=== PATIENT | male | born 1935 | race Caucasian/White ===

== ENCOUNTER 2017-07-29 07:42 | Day surgery (SDC) | payer OTHER, SELFPAY ==
[~2017-07-29 07:42] MED LIST: ALBU3IS INH; ALBU90OI INH; ALBU90OI6 INH; ALLO100 PO; AMLO5 PO; ASPI325EC; ATEN50; ATEN50 PO; AZIT250 PO; Altoprev20 MG PO; Amaryl1 MG; Anusol-HC 2.5%30 GM EXT; BUDE10.22 INH; CEFU500 PO; COLC.6 PO; CPAP AT NIGHT; DILT180; DILT180 PO; ELIQUIS2.5 MG PO; ELIQUIS5 MG PO; FISH1000 PO; FLAX; Ferrous Sulfat325 M2 PO; Fluocinonide60 ML TOP; GABA300; GABA300 PO; GLIM2 PO; HYDACE5 PO; HYDR10 PO; HYDROCHLOROTHIAZIDE; Hydrocodone-Ap1 EA23 PO; INDO50 PO; KETO15TC TOP; LOSARTAN-HCTZ1 EAC2 PO; LOSHYD PO; LOVA20; METPRE4DP PO; OXYACE5T PO; PANT20 PO; RANI150; TAMS.4ER; TAMS.4ER PO; TRAM50 PO; TRIA15CR3 TOP; VICODIN 5-3001 EACH PO; [UNRECOGNIZED DRUG - REMARK]; [UNRECOGNIZED DRUG - REMARK]; [UNRECOGNIZED DRUG - REMARK]; [UNRECOGNIZED DRUG - REMARK]
== END 2017-07-29 18:17 | disposition home or self-care (01) ==
LOC: ATC 07:42
DX: E11.22 Type 2 diabetes mellitus with diabetic chronic kidney disease (principal); N18.9 Chronic kidney disease, unspecified; D63.1 Anemia in chronic kidney disease; D63.8 Anemia in other chronic diseases classified elsewhere; K92.1 Melena; E11.40 Type 2 diabetes mellitus with diabetic neuropathy, unspecified; J44.9 Chronic obstructive pulmonary disease, unspecified; I12.9 Hypertensive chronic kidney disease with stage 1 through stage 4 chronic kidney disease, or unspecified chronic kidney disease; E78.5 Hyperlipidemia, unspecified; Z87.891 Personal history of nicotine dependence
CPT/HCPCS: 36430; 86850; 86900; 86901; 86923; J7050; P9016

== ENCOUNTER 2017-08-31 10:09 | Inpatient (IN) | payer OTHER, SELFPAY ==
[~2017-08-31] VITALS: Ht 175.3 cm; Wt 88.7 kg
[2017-08-31 11:18] LABS: BASOPHILS ABSOLUTE AUTO 0.05 K/mm3 (0.00-0.23); BASOPHILS PERCENT AUTO 0 % (0-2); EOSINOPHILS PERCENT AUTO 0 % (0-6); Hematocrit 31.1 % (37.0-53.0); Hemoglobin 8.8 g/dL (13.5-17.5); IMMATURE GRAN ABSOLUTE AUTO 0.18 K/mm3 (0.00-0.10); IMMATURE GRAN PERCENT AUTO 1 % (0-1); LYMPHOCYTES ABSOLUTE AUTO 0.34 K/mm3 (0.84-5.20); LYMPHOCYTES PERCENT AUTO 1 % (21-46); MONOCYTES ABSOLUTE AUTO 2.13 K/mm3 (0.16-1.47); MONOCYTES PERCENT AUTO 9 % (4-13); Mean Corpuscular HGB 22.4 pg (26.0-34.0); Mean Corpuscular HGB Conc 28.3 g/dL (31.5-36.5); Mean Corpuscular Volume 79 fL (80-100); Mean Platelet Volume 11.8 fL (9.1-12.4); NEUTROPHILS ABSOLUTE AUTO 21.26 K/mm3 (1.96-9.15); NEUTROPHILS PERCENT AUTO 89 % (41-73); Platelet Count 271 K/mm3 (150-400); RDW Coefficient Variation 20.9 % (11.7-14.2); RDW Standard Deviation 58.9 fL (35.1-46.3); Red Blood Cell Count 3.92 M/mm3 (4.30-5.90); White Blood Cell Count 23.96 K/mm3 (4.00-11.30)
[2017-08-31 11:34] LABS: Albumin, Blood 3.5 g/dL (3.4-5.0); Albumin/Globulin Ratio 1.1 (0.8-1.8); Bilirubin, Total 1.4 mg/dL (0.1-1.0); Bun/Creatinine Ratio 11.3 (12.0-20.0); Calcium, Blood 9.3 mg/dL (8.5-10.1); Creatinine, Blood 1.51 mg/dL (0.60-1.20); Globulin, Blood 3.3 g/dL (2.2-4.0); Potassium, Blood 4.6 mmol/L (3.5-5.5); Total Protein, Blood 6.8 g/dL (6.4-8.2)
[2017-08-31 22:25] LABS: Influenza A Negative (NEGATIVE); Influenza B Negative (NEGATIVE)
[2017-09-01 05:26] LABS: Hematocrit 30.2 % (37.0-53.0); Hemoglobin 8.4 g/dL (13.5-17.5); Mean Corpuscular HGB 22.4 pg (26.0-34.0); Mean Corpuscular HGB Conc 27.8 g/dL (31.5-36.5); Mean Corpuscular Volume 81 fL (80-100); Mean Platelet Volume 11.3 fL (9.1-12.4); Platelet Count 264 K/mm3 (150-400); RDW Coefficient Variation 20.9 % (11.7-14.2); RDW Standard Deviation 59.6 fL (35.1-46.3); Red Blood Cell Count 3.75 M/mm3 (4.30-5.90)
[2017-09-01 05:48] LABS: Bun/Creatinine Ratio 15.1 (12.0-20.0); Calcium, Blood 8.5 mg/dL (8.5-10.1); Creatinine, Blood 1.66 mg/dL (0.60-1.20); Potassium, Blood 3.9 mmol/L (3.5-5.5)
[2017-09-01 06:20] LABS: BAND PERCENT MAN 11 % (0-8); BASOPHILS PERCENT MAN 0 % (0-2); EOSINOPHILS PERCENT MAN 0 % (0-6); LYMPHOCYTES ABSOLUTE MAN 0.62 K/mm3 (0.84-5.20); LYMPHOCYTES PERCENT MAN 4 % (21-46); METAMYELOCYTE ABSOLUTE MAN 0.31 K/mm3 (0.00-0.00); METAMYELOCYTE PERCENT MAN 2 % (0-0); MONOCYTES ABSOLUTE MAN 0.77 K/mm3 (0.16-1.47); MONOCYTES PERCENT MAN 5 % (4-13); MYELOCYTE ABSOLUTE MAN 0.15 K/mm3 (0.00-0.00); MYELOCYTE PERCENT MAN 1 % (0-0); NEUTROPHILS ABSOLUTE MAN 13.64 K/mm3 (1.96-9.15); SEG NEUTROPHILS PERCENT MAN 77 % (41-73); TOTAL CELLS COUNTED 100
[2017-09-01 08:07] LABS: Source, Urine Clean Catch
[2017-09-01 08:11] LABS: Blood, Urine 4+ (Neg); Glucose Qualitative, Urine Neg (Neg); Ketones, Urine Neg (Neg); Leukocyte Esterase, Urine 2+ (Neg); Nitrite, Urine Neg (Neg); Protein, Urine 1+ (Neg); Specific Gravity, Urine 1.025 (1.003-1.022); Urobilinogen, Urine 2+ (Normal)
[2017-09-01 08:23] LABS: Appearance, Urine Hazy (Clear); Bilirubin, Urine 1+ (Neg); Color, Urine Amber (P-Yellow)
[2017-09-01 08:25] LABS: Amorphous Light (0-Heavy); Bacteria Mod /hpf; Red Blood Cells, Urine 0-2 /hpf (0-2); Squamous Epithelial Cells Rare /hpf (Few); White Blood Cells, Urine 0-2 /hpf (0-5)
[2017-09-02 11:06] LABS: Hematocrit 25.6 % (37.0-53.0); Hemoglobin 7.2 g/dL (13.5-17.5); Mean Corpuscular HGB 22.6 pg (26.0-34.0); Mean Corpuscular HGB Conc 28.1 g/dL (31.5-36.5); Mean Corpuscular Volume 80 fL (80-100); Platelet Count 199 K/mm3 (150-400); RDW Coefficient Variation 20.3 % (11.7-14.2); RDW Standard Deviation 58.4 fL (35.1-46.3); Red Blood Cell Count 3.19 M/mm3 (4.30-5.90); White Blood Cell Count 10.98 K/mm3 (4.00-11.30)
[2017-09-02 11:08] LABS: Mean Platelet Volume 12.2 fL (9.1-12.4)
[2017-09-02 11:28] LABS: Bun/Creatinine Ratio 18.2 (12.0-20.0); Calcium, Blood 7.6 mg/dL (8.5-10.1); Creatinine, Blood 1.48 mg/dL (0.60-1.20); Potassium, Blood 3.7 mmol/L (3.5-5.5)
[2017-09-03 06:01] LABS: Hemoglobin 8.2 g/dL (13.5-17.5); Mean Corpuscular HGB Conc 29.3 g/dL (31.5-36.5); Mean Corpuscular Volume 78 fL (80-100); Mean Platelet Volume 12.4 fL (9.1-12.4); Platelet Count 189 K/mm3 (150-400); RDW Coefficient Variation 19.6 % (11.7-14.2); RDW Standard Deviation 54.4 fL (35.1-46.3); Red Blood Cell Count 3.57 M/mm3 (4.30-5.90); White Blood Cell Count 9.83 K/mm3 (4.00-11.30)
[2017-09-03 13:34] LABS: Stool Occult Blood Guaiac 1 Neg (Neg)
[2017-09-03] MEDS ORDERED: Folic Acid-Vit1 EACH PO (13:40)
[2017-09-03] MEDS ORDERED: LOSARTAN-HCTZ1 EAC2 PO (13:41)
[2017-09-03] MEDS ORDERED: Miralax17 GM PO (13:42)
[2017-09-03] MEDS ORDERED: LEVFLO500 PO (13:47)
[2017-09-03] MEDS ORDERED: OMEPRAZOLE MAGN20 MG PO (13:47)
== END 2017-09-03 16:42 | disposition home or self-care (01) | DRG 872 ==
LOC: ER 10:09 → MEDS 10:10
PROVIDERS: Emergency Medicine; Internal Medicine
DX: A41.9 Sepsis, unspecified organism (principal); K56.600 Partial intestinal obstruction, unspecified as to cause; E11.22 Type 2 diabetes mellitus with diabetic chronic kidney disease; J44.9 Chronic obstructive pulmonary disease, unspecified; N18.3 Chronic kidney disease, stage 3 (moderate); N39.0 Urinary tract infection, site not specified; E78.5 Hyperlipidemia, unspecified; M10.9 Gout, unspecified; I12.9 Hypertensive chronic kidney disease with stage 1 through stage 4 chronic kidney disease, or unspecified chronic kidney disease; K21.9 Gastro-esophageal reflux disease without esophagitis; B96.1 Klebsiella pneumoniae [K. pneumoniae] as the cause of diseases classified elsewhere; B95.2 Enterococcus as the cause of diseases classified elsewhere; D50.9 Iron deficiency anemia, unspecified; Z86.718 Personal history of other venous thrombosis and embolism; Z79.82 Long term (current) use of aspirin; Z79.899 Other long term (current) drug therapy; Z86.010 Personal history of colon polyps; Z87.891 Personal history of nicotine dependence
CPT/HCPCS: 36415; 36430; 74022; 80048; 80053; 81001; 82272; 82565; 83690; 85025; 85027; 86850; 86900; 86901; 86923; 87077; 87086; 87186; 87493; 87804; 93005; 93010; 96361; 96365; 96372; 96374; 96375; 96376; 99285; G0378; J1650; J2270; J2405; J2543; J2765; J2916; J3370; J7030; P9016

== ENCOUNTER 2017-09-04 00:31 | Day surgery (SDC) | payer OTHER, SELFPAY ==
[~2017-09-04 00:31] MED LIST changes: +Folic Acid-Vit1 EACH PO; +LEVFLO500 PO; +Miralax17 GM PO; +OMEPRAZOLE MAGN20 MG PO
== END 2017-09-04 16:25 | disposition home or self-care (01) ==
LOC: ATC 00:31
DX: E11.22 Type 2 diabetes mellitus with diabetic chronic kidney disease (principal); I12.9 Hypertensive chronic kidney disease with stage 1 through stage 4 chronic kidney disease, or unspecified chronic kidney disease; N18.9 Chronic kidney disease, unspecified; D63.1 Anemia in chronic kidney disease; D63.8 Anemia in other chronic diseases classified elsewhere; K92.1 Melena; E11.40 Type 2 diabetes mellitus with diabetic neuropathy, unspecified; J44.9 Chronic obstructive pulmonary disease, unspecified; E78.5 Hyperlipidemia, unspecified; K21.9 Gastro-esophageal reflux disease without esophagitis; Z87.891 Personal history of nicotine dependence; R10.9 Unspecified abdominal pain
CPT/HCPCS: 96365; J2916

== ENCOUNTER 2017-09-05 00:13 | Day surgery (SDC) | payer OTHER, SELFPAY | END 2017-09-05 16:04 | disposition home or self-care (01) | LOC: ATC 00:13 | DX: D63.8 Anemia in other chronic diseases classified elsewhere (principal); K92.1 Melena | CPT/HCPCS: 96365; J2916 ==

== ENCOUNTER 2017-09-06 00:08 | Day surgery (SDC) | payer OTHER, SELFPAY | END 2017-09-06 16:02 | disposition home or self-care (01) | LOC: ATC 00:08 | DX: R10.9 Unspecified abdominal pain (principal); Z95.828 Presence of other vascular implants and grafts; Z79.899 Other long term (current) drug therapy | CPT/HCPCS: 96365; J2916 ==

== ENCOUNTER 2017-09-07 00:08 | Day surgery (SDC) | payer OTHER, SELFPAY | END 2017-09-07 16:30 | disposition home or self-care (01) | LOC: ATC 00:08 | DX: E11.22 Type 2 diabetes mellitus with diabetic chronic kidney disease (principal); I12.9 Hypertensive chronic kidney disease with stage 1 through stage 4 chronic kidney disease, or unspecified chronic kidney disease; N18.9 Chronic kidney disease, unspecified; E11.40 Type 2 diabetes mellitus with diabetic neuropathy, unspecified; E78.5 Hyperlipidemia, unspecified; E53.8 Deficiency of other specified B group vitamins; Z87.891 Personal history of nicotine dependence; R10.9 Unspecified abdominal pain | CPT/HCPCS: 96365; J2916 ==

== ENCOUNTER 2017-09-20 11:57 | Emergency (ER) | payer OTHER, SELFPAY ==
[~2017-09-20] VITALS: Ht 175.3 cm; Wt 90.7 kg
[2017-09-20 14:13] LABS: BASOPHILS ABSOLUTE AUTO 0.02 K/mm3 (0.00-0.23); BASOPHILS PERCENT AUTO 0 % (0-2); EOSINOPHILS ABSOLUTE AUTO 0.01 K/mm3 (0.00-0.68); EOSINOPHILS PERCENT AUTO 0 % (0-6); Hematocrit 34.5 % (37.0-53.0); Hemoglobin 10.1 g/dL (13.5-17.5); IMMATURE GRAN ABSOLUTE AUTO 0.03 K/mm3 (0.00-0.10); IMMATURE GRAN PERCENT AUTO 1 % (0-1); LYMPHOCYTES ABSOLUTE AUTO 0.91 K/mm3 (0.84-5.20); LYMPHOCYTES PERCENT AUTO 15 % (21-46); MONOCYTES ABSOLUTE AUTO 0.71 K/mm3 (0.16-1.47); MONOCYTES PERCENT AUTO 12 % (4-13); Mean Corpuscular HGB 24.9 pg (26.0-34.0); Mean Corpuscular HGB Conc 29.3 g/dL (31.5-36.5); Mean Corpuscular Volume 85 fL (80-100); NEUTROPHILS ABSOLUTE AUTO 4.23 K/mm3 (1.96-9.15); NEUTROPHILS PERCENT AUTO 72 % (41-73); Platelet Count 316 K/mm3 (150-400); RDW Coefficient Variation 25.1 % (11.7-14.2); RDW Standard Deviation 75.9 fL (35.1-46.3); Red Blood Cell Count 4.06 M/mm3 (4.30-5.90); White Blood Cell Count 5.91 K/mm3 (4.00-11.30)
[2017-09-20 14:43] LABS: Alanine Aminotransfer (ALT/SGP 22 U/L (12-78); Albumin/Globulin Ratio 0.8 (0.8-1.8); Alk Phos 77 U/L (50-136); Anion Gap 8 mmol/L (6-16); Aspartate Aminotrans (AST/SGOT 29 U/L (12-37); Bilirubin, Total 0.4 mg/dL (0.1-1.0); Blood Urea Nitrogen 21 mg/dL (8-24); Bun/Creatinine Ratio 16.8 (12.0-20.0); CO2, Blood 28 mmol/L (21-32); Calcium, Blood 8.4 mg/dL (8.5-10.1); Chloride, Blood 104 mmol/L (98-108); Creatinine, Blood 1.25 mg/dL (0.60-1.20); Globulin, Blood 3.8 g/dL (2.2-4.0); Glomerular Filtration Rate 59 (60-); Glucose, Blood 124 mg/dL (70-99); Potassium, Blood 3.6 mmol/L (3.5-5.5); Sodium, Blood 140 mmol/L (136-145); Total Protein, Blood 6.8 g/dL (6.4-8.2); Troponin I <0.015 ng/mL (0.000-0.040)
[2017-09-20] MEDS ORDERED: Cleocin HCl300 MG PO (15:34)
[2017-09-20] MEDS ORDERED: Norco 5-325 Ta1 EACH PO (15:47)
== END 2017-09-20 16:43 | disposition home or self-care (01) ==
LOC: ER 11:57
PROVIDERS: Physician Assistant
DX: L03.116 Cellulitis of left lower limb (principal); L03.115 Cellulitis of right lower limb; Z79.899 Other long term (current) drug therapy; Z79.82 Long term (current) use of aspirin; Z79.2 Long term (current) use of antibiotics; I10 Essential (primary) hypertension; E11.9 Type 2 diabetes mellitus without complications; Z87.891 Personal history of nicotine dependence; D64.9 Anemia, unspecified
CPT/HCPCS: 36415; 71046; 80053; 83880; 84484; 85025; 85651; 93005; 93010; 96365; 99283

== ENCOUNTER 2017-10-12 08:43 | Inpatient (IN) | payer OTHER, SELFPAY ==
[~2017-10-12] VITALS: Ht 175.3 cm; Wt 87.2 kg
[~2017-10-12 08:43] MED LIST changes: +Cleocin HCl300 MG PO; +Norco 5-325 Ta1 EACH PO
[2017-10-12 09:44] LABS: BASOPHILS ABSOLUTE AUTO 0.02 K/mm3 (0.00-0.23); BASOPHILS PERCENT AUTO 0 % (0-2); EOSINOPHILS ABSOLUTE AUTO 0.01 K/mm3 (0.00-0.68); EOSINOPHILS PERCENT AUTO 0 % (0-6); Hematocrit 36.9 % (37.0-53.0); Hemoglobin 11.2 g/dL (13.5-17.5); IMMATURE GRAN ABSOLUTE AUTO 0.04 K/mm3 (0.00-0.10); IMMATURE GRAN PERCENT AUTO 0 % (0-1); LYMPHOCYTES ABSOLUTE AUTO 0.76 K/mm3 (0.84-5.20); LYMPHOCYTES PERCENT AUTO 7 % (21-46); MONOCYTES ABSOLUTE AUTO 0.89 K/mm3 (0.16-1.47); MONOCYTES PERCENT AUTO 9 % (4-13); Mean Corpuscular HGB 25.7 pg (26.0-34.0); Mean Corpuscular HGB Conc 30.4 g/dL (31.5-36.5); Mean Corpuscular Volume 85 fL (80-100); Mean Platelet Volume 12.1 fL (9.1-12.4); NEUTROPHILS ABSOLUTE AUTO 8.65 K/mm3 (1.96-9.15); NEUTROPHILS PERCENT AUTO 83 % (41-73); Platelet Count 305 K/mm3 (150-400); RDW Coefficient Variation 21.2 % (11.7-14.2); RDW Standard Deviation 64.5 fL (35.1-46.3); Red Blood Cell Count 4.36 M/mm3 (4.30-5.90); White Blood Cell Count 10.37 K/mm3 (4.00-11.30)
[2017-10-12 10:01] LABS: Alanine Aminotransfer (ALT/SGP 30 U/L (12-78); Albumin, Blood 3.6 g/dL (3.4-5.0); Albumin/Globulin Ratio 0.9 (0.8-1.8); Alk Phos 76 U/L (50-136); Anion Gap 16 mmol/L (6-16); Aspartate Aminotrans (AST/SGOT 35 U/L (12-37); Bilirubin, Total 0.3 mg/dL (0.1-1.0); Blood Urea Nitrogen 65 mg/dL (8-24); Bun/Creatinine Ratio 20.1 (12.0-20.0); CO2, Blood 24 mmol/L (21-32); Calcium, Blood 8.8 mg/dL (8.5-10.1); Chloride, Blood 97 mmol/L (98-108); Creatinine, Blood 3.23 mg/dL (0.60-1.20); Glomerular Filtration Rate 20 (60-); Glucose, Blood 380 mg/dL (70-99); Potassium, Blood 3.5 mmol/L (3.5-5.5); Sodium, Blood 137 mmol/L (136-145); Total Protein, Blood 7.6 g/dL (6.4-8.2); Troponin I <0.015 ng/mL (0.000-0.040)
[2017-10-12] MEDS ORDERED: BUME2 PO (13:45)
[2017-10-12] MEDS ORDERED: METO2.5 PO (13:45)
[2017-10-13 04:20] LABS: BASOPHILS ABSOLUTE AUTO 0.02 K/mm3 (0.00-0.23); BASOPHILS PERCENT AUTO 0 % (0-2); EOSINOPHILS ABSOLUTE AUTO 0.02 K/mm3 (0.00-0.68); EOSINOPHILS PERCENT AUTO 0 % (0-6); Hematocrit 34.3 % (37.0-53.0); Hemoglobin 10.6 g/dL (13.5-17.5); IMMATURE GRAN ABSOLUTE AUTO 0.01 K/mm3 (0.00-0.10); IMMATURE GRAN PERCENT AUTO 0 % (0-1); LYMPHOCYTES ABSOLUTE AUTO 1.01 K/mm3 (0.84-5.20); LYMPHOCYTES PERCENT AUTO 16 % (21-46); MONOCYTES ABSOLUTE AUTO 0.85 K/mm3 (0.16-1.47); MONOCYTES PERCENT AUTO 13 % (4-13); Mean Corpuscular HGB 25.7 pg (26.0-34.0); Mean Corpuscular HGB Conc 30.9 g/dL (31.5-36.5); Mean Corpuscular Volume 83 fL (80-100); Mean Platelet Volume 10.8 fL (9.1-12.4); NEUTROPHILS ABSOLUTE AUTO 4.55 K/mm3 (1.96-9.15); NEUTROPHILS PERCENT AUTO 70 % (41-73); Platelet Count 261 K/mm3 (150-400); RDW Coefficient Variation 20.5 % (11.7-14.2); Red Blood Cell Count 4.13 M/mm3 (4.30-5.90); White Blood Cell Count 6.46 K/mm3 (4.00-11.30)
[2017-10-13 04:45] LABS: Calcium, Blood 8.7 mg/dL (8.5-10.1); Creatinine, Blood 2.11 mg/dL (0.60-1.20); Potassium, Blood 3.9 mmol/L (3.5-5.5)
[2017-10-13] MEDS ORDERED: METO50ER PO (10:26)
== END 2017-10-13 11:30 | disposition home or self-care (01) | DRG 684 ==
LOC: ER 08:43 → PCU 11:31
PROVIDERS: Emergency Medicine; Hospitalist
DX: N17.9 Acute kidney failure, unspecified (principal); E11.649 Type 2 diabetes mellitus with hypoglycemia without coma; I48.91 Unspecified atrial fibrillation; J44.9 Chronic obstructive pulmonary disease, unspecified; E86.0 Dehydration; I73.9 Peripheral vascular disease, unspecified; E78.5 Hyperlipidemia, unspecified; I10 Essential (primary) hypertension; K21.9 Gastro-esophageal reflux disease without esophagitis; M10.9 Gout, unspecified; Z86.718 Personal history of other venous thrombosis and embolism; Z79.82 Long term (current) use of aspirin; Z79.84 Long term (current) use of oral hypoglycemic drugs; Z79.899 Other long term (current) drug therapy; Z87.891 Personal history of nicotine dependence
CPT/HCPCS: 36415; 71046; 80048; 80053; 82947; 83880; 84443; 84484; 85025; 93005; 93010; 93971; 94760; 96374; 99285; J7042

== ENCOUNTER 2017-10-22 22:12 | Inpatient (IN) | payer OTHER, SELFPAY ==
[~2017-10-22] VITALS: Ht 175.3 cm; Wt 87.0 kg
[~2017-10-22 22:12] MED LIST changes: +BUME2 PO; +METO2.5 PO; +METO50ER PO
[2017-10-22 22:46] LABS: BASOPHILS ABSOLUTE AUTO 0.03 K/mm3 (0.00-0.23); BASOPHILS PERCENT AUTO 0 % (0-2); EOSINOPHILS ABSOLUTE AUTO 0.03 K/mm3 (0.00-0.68); EOSINOPHILS PERCENT AUTO 0 % (0-6); Hematocrit 34.6 % (37.0-53.0); Hemoglobin 10.2 g/dL (13.5-17.5); IMMATURE GRAN ABSOLUTE AUTO 0.02 K/mm3 (0.00-0.10); IMMATURE GRAN PERCENT AUTO 0 % (0-1); LYMPHOCYTES ABSOLUTE AUTO 1.17 K/mm3 (0.84-5.20); LYMPHOCYTES PERCENT AUTO 15 % (21-46); MONOCYTES ABSOLUTE AUTO 0.74 K/mm3 (0.16-1.47); MONOCYTES PERCENT AUTO 10 % (4-13); Mean Corpuscular HGB 25.6 pg (26.0-34.0); Mean Corpuscular HGB Conc 29.5 g/dL (31.5-36.5); Mean Platelet Volume 11.1 fL (9.1-12.4); NEUTROPHILS ABSOLUTE AUTO 5.74 K/mm3 (1.96-9.15); NEUTROPHILS PERCENT AUTO 74 % (41-73); Platelet Count 282 K/mm3 (150-400); RDW Coefficient Variation 19.2 % (11.7-14.2); RDW Standard Deviation 61.2 fL (35.1-46.3); Red Blood Cell Count 3.99 M/mm3 (4.30-5.90); White Blood Cell Count 7.73 K/mm3 (4.00-11.30)
[2017-10-22 22:48] LABS: Mean Corpuscular Volume 87 fL (80-100)
[2017-10-22 23:03] LABS: International Normalized Ratio 1.55; Prothrombin Time Results 16.3 Sec (9.7-11.5)
[2017-10-22 23:04] LABS: Albumin, Blood 3.5 g/dL (3.4-5.0); Albumin/Globulin Ratio 0.9 (0.8-1.8); Bilirubin, Total 0.4 mg/dL (0.1-1.0); Bun/Creatinine Ratio 24.4 (12.0-20.0); Creatinine, Blood 1.93 mg/dL (0.60-1.20); Globulin, Blood 3.7 g/dL (2.2-4.0); Potassium, Blood 4.1 mmol/L (3.5-5.5); Total Protein, Blood 7.2 g/dL (6.4-8.2)
[2017-10-23 06:54] LABS: Hematocrit 27.2 % (37.0-53.0); Hemoglobin 8.3 g/dL (13.5-17.5)
[2017-10-23 15:07] LABS: Hematocrit 27.8 % (37.0-53.0)
[2017-10-23 22:55] LABS: Hematocrit 28.1 % (37.0-53.0); Hemoglobin 8.7 g/dL (13.5-17.5)
[2017-10-24 04:54] LABS: BASOPHILS ABSOLUTE AUTO 0.02 K/mm3 (0.00-0.23); BASOPHILS PERCENT AUTO 0 % (0-2); EOSINOPHILS ABSOLUTE AUTO 0.05 K/mm3 (0.00-0.68); EOSINOPHILS PERCENT AUTO 1 % (0-6); Hematocrit 26.1 % (37.0-53.0); Hemoglobin 7.8 g/dL (13.5-17.5); IMMATURE GRAN ABSOLUTE AUTO 0.02 K/mm3 (0.00-0.10); IMMATURE GRAN PERCENT AUTO 0 % (0-1); LYMPHOCYTES ABSOLUTE AUTO 1.07 K/mm3 (0.84-5.20); LYMPHOCYTES PERCENT AUTO 18 % (21-46); MONOCYTES ABSOLUTE AUTO 0.46 K/mm3 (0.16-1.47); MONOCYTES PERCENT AUTO 8 % (4-13); Mean Corpuscular HGB 25.7 pg (26.0-34.0); Mean Corpuscular HGB Conc 29.9 g/dL (31.5-36.5); Mean Corpuscular Volume 86 fL (80-100); Mean Platelet Volume 10.6 fL (9.1-12.4); NEUTROPHILS ABSOLUTE AUTO 4.26 K/mm3 (1.96-9.15); NEUTROPHILS PERCENT AUTO 73 % (41-73); Platelet Count 196 K/mm3 (150-400); RDW Coefficient Variation 18.5 % (11.7-14.2); RDW Standard Deviation 58.1 fL (35.1-46.3); Red Blood Cell Count 3.04 M/mm3 (4.30-5.90); White Blood Cell Count 5.88 K/mm3 (4.00-11.30)
[2017-10-24 05:16] LABS: Albumin, Blood 2.8 g/dL (3.4-5.0); Anion Gap 7 mmol/L (6-16); Blood Urea Nitrogen 36 mg/dL (8-24); Bun/Creatinine Ratio 28.3 (12.0-20.0); CO2, Blood 26 mmol/L (21-32); Calcium, Blood 8.4 mg/dL (8.5-10.1); Chloride, Blood 106 mmol/L (98-108); Creatinine, Blood 1.27 mg/dL (0.60-1.20); Glomerular Filtration Rate 58 (60-); Glucose, Blood 66 mg/dL (70-99); Phosphorus, Blood 1.8 mg/dL (2.5-4.9); Potassium, Blood 4.3 mmol/L (3.5-5.5); Sodium, Blood 139 mmol/L (136-145)
[2017-10-24 12:38] LABS: Hematocrit 28.5 % (37.0-53.0); Hemoglobin 8.5 g/dL (13.5-17.5)
[2017-10-25 04:19] LABS: BASOPHILS ABSOLUTE AUTO 0.02 K/mm3 (0.00-0.23); BASOPHILS PERCENT AUTO 0 % (0-2); EOSINOPHILS ABSOLUTE AUTO 0.03 K/mm3 (0.00-0.68); EOSINOPHILS PERCENT AUTO 1 % (0-6); Hematocrit 25.9 % (37.0-53.0); IMMATURE GRAN ABSOLUTE AUTO 0.01 K/mm3 (0.00-0.10); IMMATURE GRAN PERCENT AUTO 0 % (0-1); LYMPHOCYTES ABSOLUTE AUTO 1.13 K/mm3 (0.84-5.20); LYMPHOCYTES PERCENT AUTO 23 % (21-46); MONOCYTES ABSOLUTE AUTO 0.57 K/mm3 (0.16-1.47); MONOCYTES PERCENT AUTO 12 % (4-13); Mean Corpuscular HGB 26.2 pg (26.0-34.0); Mean Corpuscular HGB Conc 30.9 g/dL (31.5-36.5); Mean Corpuscular Volume 85 fL (80-100); Mean Platelet Volume 11.6 fL (9.1-12.4); NEUTROPHILS ABSOLUTE AUTO 3.21 K/mm3 (1.96-9.15); NEUTROPHILS PERCENT AUTO 65 % (41-73); Platelet Count 193 K/mm3 (150-400); RDW Coefficient Variation 18.4 % (11.7-14.2); RDW Standard Deviation 57.1 fL (35.1-46.3); Red Blood Cell Count 3.05 M/mm3 (4.30-5.90); White Blood Cell Count 4.97 K/mm3 (4.00-11.30)
[2017-10-25 04:43] LABS: Albumin, Blood 2.8 g/dL (3.4-5.0); Anion Gap 6 mmol/L (6-16); Blood Urea Nitrogen 26 mg/dL (8-24); Bun/Creatinine Ratio 20.6 (12.0-20.0); CO2, Blood 28 mmol/L (21-32); Calcium, Blood 8.4 mg/dL (8.5-10.1); Chloride, Blood 104 mmol/L (98-108); Creatinine, Blood 1.26 mg/dL (0.60-1.20); Glomerular Filtration Rate 58 (60-); Glucose, Blood 82 mg/dL (70-99); Phosphorus, Blood 2.4 mg/dL (2.5-4.9); Potassium, Blood 4.3 mmol/L (3.5-5.5); Sodium, Blood 138 mmol/L (136-145)
[2017-10-26] MEDS ORDERED: ASPI81CH PO (10:56)
[2017-10-26] MEDS ORDERED: Fish Oil 10001000 MG PO (10:56)
[2017-10-26] MEDS ORDERED: GLIM4 PO (10:56)
[2017-10-26] MEDS ORDERED: Ferrous Sulfat325 M2 PO (10:56)
[2017-10-26] MEDS ORDERED: XARELTO15 MG PO (10:57)
[2017-10-26] MEDS ORDERED: FLAX PO (10:57)
[2017-10-26] MEDS ORDERED: FERRLECIT62.5 MG/5 IV (10:57)
== END 2017-10-26 11:10 | disposition home or self-care (01) | DRG 378 ==
LOC: ER 22:12 → SURS 22:13
PROVIDERS: Emergency Medicine; Family Medicine; Internal Medicine
PROC: 0D5H8ZZ Destruction of Cecum, Via Natural or Artificial Opening Endoscopic (ICD-10-PCS; principal; 2017-10-22)
PROC: 0DBP8ZZ Excision of Rectum, Via Natural or Artificial Opening Endoscopic (ICD-10-PCS; 2017-10-22)
PROC: 0DBN8ZZ Excision of Sigmoid Colon, Via Natural or Artificial Opening Endoscopic (ICD-10-PCS; 2017-10-22)
PROC: 3E0234Z Introduction of Serum, Toxoid and Vaccine into Muscle, Percutaneous Approach (ICD-10-PCS; 2017-10-25)
DX: K55.21 Angiodysplasia of colon with hemorrhage (principal); D62 Acute posthemorrhagic anemia; E11.22 Type 2 diabetes mellitus with diabetic chronic kidney disease; E11.40 Type 2 diabetes mellitus with diabetic neuropathy, unspecified; E11.649 Type 2 diabetes mellitus with hypoglycemia without coma; I82.502 Chronic embolism and thrombosis of unspecified deep veins of left lower extremity; I48.2 Chronic atrial fibrillation; Z23 Encounter for immunization; E78.5 Hyperlipidemia, unspecified; K21.9 Gastro-esophageal reflux disease without esophagitis; I12.9 Hypertensive chronic kidney disease with stage 1 through stage 4 chronic kidney disease, or unspecified chronic kidney disease; N20.0 Calculus of kidney; J44.9 Chronic obstructive pulmonary disease, unspecified; E66.9 Obesity, unspecified; Z68.28 Body mass index [BMI] 28.0-28.9, adult; K64.8 Other hemorrhoids; K63.5 Polyp of colon; K62.1 Rectal polyp; K57.30 Diverticulosis of large intestine without perforation or abscess without bleeding; N13.9 Obstructive and reflux uropathy, unspecified; N18.2 Chronic kidney disease, stage 2 (mild); M10.9 Gout, unspecified
CPT/HCPCS: 36415; 80053; 80069; 82947; 85014; 85018; 85025; 85610; 85730; 86850; 86900; 86901; 88305; 94640; 94760; 99285; J7030

== ENCOUNTER → 2017-11-01 | Outpatient (CLI) | payer OTHER, SELFPAY ==
[~2017-11-01] MED LIST changes: +ASPI81CH PO; +FERRLECIT62.5 MG/5 IV; +FLAX PO; +Fish Oil 10001000 MG PO; +GLIM4 PO; +XARELTO15 MG PO
[2017-11-01 17:15] LABS: Percent Saturation 5.2 % (20.0-50.0)
== END ==
LOC: LAB SHORT 15:00 → LAB 15:00
PROVIDERS: Internal Medicine Hematology & Oncology
DX: D50.9 Iron deficiency anemia, unspecified (principal)
CPT/HCPCS: 82728; 83540; 83550

== ENCOUNTER 2018-02-09 17:20 | Emergency (ER) | payer OTHER ==
[~2018-02-09] VITALS: Ht 175.3 cm; Wt 81.2 kg
== END 2018-02-09 20:44 | disposition home or self-care (01) ==
LOC: ER 17:20
DX: S01.01XA Laceration without foreign body of scalp, initial encounter (principal); S50.312A Abrasion of left elbow, initial encounter; W17.89XA Other fall from one level to another, initial encounter; Z79.899 Other long term (current) drug therapy; E11.9 Type 2 diabetes mellitus without complications; D64.9 Anemia, unspecified; Z87.891 Personal history of nicotine dependence
CPT/HCPCS: 12001; 36415; 70450; 72125; 73080; 90471; 90714; 93005; 93010; 99284-25

== ENCOUNTER 2018-03-18 08:58 | Day surgery (SDC) | payer OTHER ==
[~2018-03-18] VITALS: Ht 175.3 cm; Wt 81.2 kg
[2018-03-18] MEDS ORDERED: FURO100EL (09:46)
[2018-03-18] MEDS ORDERED: METO2.5 (09:46)
[2018-03-18] MEDS ORDERED: ELIQUIS5 M1 (09:46)
[2018-03-18] MEDS ORDERED: BUME1 (09:46)
[2018-03-18] MEDS ORDERED: Ferrex 150 For1 EACH (09:46)
[2018-03-18] MEDS ORDERED: GLUC500 (09:47)
[2018-03-18] MEDS ORDERED: OSTERA TABLET1 EACH (09:47)
[2018-03-18] MEDS ORDERED: MYRBETRIQ25 MG (09:47)
== END 2018-03-18 11:15 | disposition home or self-care (01) ==
LOC: ORSCSDS 08:58
PROVIDERS: Internal Medicine Gastroenterology
PROC: 0D568ZZ Destruction of Stomach, Via Natural or Artificial Opening Endoscopic (ICD-10-PCS; principal; 2018-03-18 10:30)
PROC: 0DB68ZX Excision of Stomach, Via Natural or Artificial Opening Endoscopic, Diagnostic (ICD-10-PCS; principal; 2018-03-18 10:30)
DX: D50.9 Iron deficiency anemia, unspecified (principal); K55.20 Angiodysplasia of colon without hemorrhage; K22.8 Other specified diseases of esophagus; J44.9 Chronic obstructive pulmonary disease, unspecified; K21.9 Gastro-esophageal reflux disease without esophagitis; Z86.718 Personal history of other venous thrombosis and embolism; E78.5 Hyperlipidemia, unspecified; N18.9 Chronic kidney disease, unspecified; I48.91 Unspecified atrial fibrillation; Z86.010 Personal history of colon polyps; E11.9 Type 2 diabetes mellitus without complications; Z99.81 Dependence on supplemental oxygen; Z87.891 Personal history of nicotine dependence; Z79.01 Long term (current) use of anticoagulants; Z79.4 Long term (current) use of insulin; Z79.899 Other long term (current) drug therapy
CPT/HCPCS: 82947; 88305; 88342; J2250

== ENCOUNTER 2018-08-28 03:00 | Inpatient (IN) | payer MEDICARE, OTHER ==
[~2018-08-28] VITALS: Ht 175.3 cm; Wt 81.1 kg
[~2018-08-28 03:00] MED LIST changes: +BUME1; +FURO100EL; +Ferrex 150 For1 EACH PO; +GLUC500; +METO2.5; +OSTERA TABLET1 EACH
[2018-08-28 03:28] LABS: BASOPHILS ABSOLUTE AUTO 0.03 K/mm3 (0.00-0.23); BASOPHILS PERCENT AUTO 0 % (0-2); EOSINOPHILS ABSOLUTE AUTO 0.03 K/mm3 (0.00-0.68); EOSINOPHILS PERCENT AUTO 0 % (0-6); Hematocrit 37.8 % (37.0-53.0); Hemoglobin 11.3 g/dL (13.5-17.5); IMMATURE GRAN ABSOLUTE AUTO 0.02 K/mm3 (0.00-0.10); IMMATURE GRAN PERCENT AUTO 0 % (0-1); LYMPHOCYTES ABSOLUTE AUTO 0.71 K/mm3 (0.84-5.20); LYMPHOCYTES PERCENT AUTO 6 % (21-46); MONOCYTES ABSOLUTE AUTO 1.07 K/mm3 (0.16-1.47); MONOCYTES PERCENT AUTO 9 % (4-13); Mean Corpuscular HGB 25.2 pg (26.0-34.0); Mean Corpuscular HGB Conc 29.9 g/dL (31.5-36.5); Mean Corpuscular Volume 84 fL (80-100); NEUTROPHILS ABSOLUTE AUTO 9.92 K/mm3 (1.96-9.15); NEUTROPHILS PERCENT AUTO 84 % (41-73); Platelet Count 266 K/mm3 (150-400); RDW Coefficient Variation 14.6 % (11.7-14.2); RDW Standard Deviation 44.6 fL (35.1-46.3); Red Blood Cell Count 4.49 M/mm3 (4.30-5.90); White Blood Cell Count 11.78 K/mm3 (4.00-11.30)
[2018-08-28 03:48] LABS: Alanine Aminotransfer (ALT/SGP 16 U/L (12-78); Albumin, Blood 3.6 g/dL (3.4-5.0); Alk Phos 91 U/L (50-136); Anion Gap 14 mmol/L (6-16); Aspartate Aminotrans (AST/SGOT 21 U/L (12-37); Bilirubin, Total 0.7 mg/dL (0.1-1.0); Blood Urea Nitrogen 10 mg/dL (8-24); Bun/Creatinine Ratio 8.1 (12.0-20.0); CO2, Blood 22 mmol/L (21-32); Calcium, Blood 8.4 mg/dL (8.5-10.1); Chloride, Blood 107 mmol/L (98-108); Creatinine, Blood 1.24 mg/dL (0.60-1.20); Globulin, Blood 3.7 g/dL (2.2-4.0); Glomerular Filtration Rate 59 (60-); Glucose, Blood 167 mg/dL (70-99); Magnesium, Blood 1.7 mg/dL (1.6-2.4); Potassium, Blood 3.3 mmol/L (3.5-5.5); Sodium, Blood 143 mmol/L (136-145); Total Protein, Blood 7.3 g/dL (6.4-8.2); Troponin I <0.015 ng/mL (0.000-0.040)
[2018-08-28 05:16] LABS: International Normalized Ratio 1.08; Prothrombin Time Results 11.4 Sec (9.7-11.5)
[2018-08-28] MEDS ORDERED: ALBU3IS NEB (15:52)
--- NOTE | 2018-08-28 17:58 | NUR ---
SUMMARY PT ADMITTED FROM THE ER FIRST THING THIS MORNING, PT IS ALERT AND ORIENTED, IS A ONE PERSON ASSIST, NG TUBE PLACE TO L NARE WITH SOME DIFFICULTY DUE TO A DEVIATED SEPTUM, PLACED TO LOW INT SUCTION WITH GREEN BILE COLORED LIQUID OUTPUT, SURGEON HAS BEEN IN TO SEE THE PT, WILL CONT TO MONITOR, PT HAS BEEN MED PER EMAR FOR PAIN AND NAUSEA, IS PLEASANT AND COOPERATIVE WITH CARE, VSS, NO ACUTE CHANGES, WILL CONT TO MONITOR
--- NOTE | 2018-08-28 18:47 | NUR ---
LABS DR LEAL WAS MADE AWARE OF THE LACTIC ACID LEVELS THIS MORNING, FLUIDS HAVE BEEN ORDERED, TELEMETRY ALSO ORDERED DUE TO IV METOPROLOL
--- NOTE | 2018-08-28 23:01 | NUR ---
*LATE ENTRY* AROUND 2029 CLINICAL IMPLEMENTATION SPECIALIST INFORMED ME OF INCREASED TEMP OF 101.9 & PULSE OF 109. I NOTICED LACTIC ACID WAS INCREASED EARLIER THIS AM TO 5.1. CALLED HOSPITALIST JEANMARIE & HE ORDERED A TYLENOL SUPPOSITORY. ASKED IF HE WOULD LIKE NS RATE INCREASED OR ANOTHER LACTIC ACID LAB DRAWN & NO FURTHER ORDERS AT THIS TIME. 30 MIN POST SUPPOSITORY TEMP HAS DECREASED TO 100, I TOOK OFF A FEW BLANKETS & DECREASED ROOM TEMP TO HELP, WILL MONITOR VITALS T/O NIGHT.
[2018-08-29 05:14] LABS: Hemoglobin 9.8 g/dL (13.5-17.5); Mean Corpuscular HGB 24.9 pg (26.0-34.0); Mean Corpuscular HGB Conc 29.7 g/dL (31.5-36.5); Mean Corpuscular Volume 84 fL (80-100); Platelet Count 163 K/mm3 (150-400); RDW Coefficient Variation 14.9 % (11.7-14.2); RDW Standard Deviation 45.2 fL (35.1-46.3); Red Blood Cell Count 3.94 M/mm3 (4.30-5.90); White Blood Cell Count 9.72 K/mm3 (4.00-11.30)
[2018-08-29 05:16] LABS: Mean Platelet Volume 13.5 fL (9.1-12.4)
--- NOTE | 2018-08-29 05:16 | NUR ---
SHIFT SUMMARY PT SLEPT WELL T/O NIGHT. PT AOX4. EARLIER IN SHIFT PT HAD INCREASED TEMP & PYLSE, READ PREVIOUS NOTE. VSS THIS AM & PT IS AFEBRILE. PT MEDICATED 2X W/IV METOPROLOL PER ORDERS HR TRENDING HIGH 80'S TO 109 PER SOLAR SALES CONSULTANT MONITOR W/NSR & OCCASIONAL PAC'S. PT DENIES SOB OR N/V & NO EMESIS THIS SHIFT. PT REPORTS MILD TENDERNESS IN UPPER QUADRANTS OF ABD BUT DENIES NEED FOR ANY PAIN MEDICATION. NG TUBE IS IN L. NARES & IS SET TO LOW INTERMITENT SUCTION W/DARK GREEN OUTPUT. PT HAS BEEN NPO T/O NIGHT. HEPARIN DRIP HAS BEEN RUNNING T/O SHIFT. CALL LIGHT IS IN REACH & BED IS IN LOWEST POSITION.
[2018-08-29 05:36] LABS: Alanine Aminotransfer (ALT/SGP 13 U/L (12-78); Albumin, Blood 2.7 g/dL (3.4-5.0); Albumin/Globulin Ratio 0.8 (0.8-1.8); Alk Phos 64 U/L (50-136); Anion Gap 9 mmol/L (6-16); Aspartate Aminotrans (AST/SGOT 17 U/L (12-37); Bilirubin, Total 1.3 mg/dL (0.1-1.0); Blood Urea Nitrogen 10 mg/dL (8-24); Bun/Creatinine Ratio 8.8 (12.0-20.0); CO2, Blood 23 mmol/L (21-32); Calcium, Blood 7.1 mg/dL (8.5-10.1); Chloride, Blood 111 mmol/L (98-108); Creatinine, Blood 1.14 mg/dL (0.60-1.20); Globulin, Blood 3.2 g/dL (2.2-4.0); Glomerular Filtration Rate >60 (60-); Glucose, Blood 126 mg/dL (70-99); Potassium, Blood 3.6 mmol/L (3.5-5.5); Sodium, Blood 143 mmol/L (136-145); Total Protein, Blood 5.9 g/dL (6.4-8.2)
--- NOTE | 2018-08-29 11:27 | NUR ---
HEPARIN HEPARIN DRIP STOPPED AT 1030 BY THIS RN PER VERBAL ORDER FROM DR. HAYES. DR. HAYES IN TO SEE PT THIS AM AND STATED PT WOULD BE GOING TO SURGERY AT 1500 AND HEPARIN TO BE STOPPED. THIS RN NOTIFIED PHARMACY THAT HEPARIN WAS STOPPED FOR SURGERY. WILL CONTINUE TO MONITOR. CALL LIGHT IN REACH.
--- NOTE | 2018-08-29 14:23 | NUR ---
INTO SDS VIA GURNEY. HISTORY AND ALLERGIES REVIEWED. LUNGS WITH SCATTERED WZ T/O-SATS>90% ON 2 LITERS NASAL CANULA-DUO NEB GIVEN. NGT TO LEFT NARES-DRESSING RE-ENFORCED.
--- NOTE | 2018-08-29 17:41 | NUR ---
REPORT TO ATOMIC SPECTROSCOPIST PT WENT TO SURGERY THIS AFTERNOON AND IS BEING TRANSFERRED TO PCU 3 AFTER. REPORT GIVEN TO SIDDHARTHA ROMERO IN PCU. PT'S BELONGINGS WERE SENT TO SURGICAL FLOOR, ROOM 228 DUE TO PT ORIGINALLY GOING THERE AND STAFF STATED THEY WOULD TAKE PT'S BELONGINGS TO PCU 3.
--- NOTE | 2018-08-29 19:00 | NUR ---
ASSUMED CARE- PT TO PCU3 FROM OR. PT IS CURRENTLY ORIENTED TO SELF, TOWN, AND EVENT, BUT NOT TO FACILITY. PT CONTINUOUSLY ATTEMPTING TO SWING LEGS OUT OF BED AND SIT UP. THIRD SIDE RAIL PLACED UP AND BED ALARM SET FOR SAFETY. VITAL SIGNS STABLE, PT DENIES PAIN OR NAUSEA AT THIS TIME. CONTINUES TO INSIST THAT HE NEEDS TO GET UP AND WALK. NG TUBE NOTED TO L NARES, WILL CONNECT TO LOW INTERMITTENT SUCTION. LUNG SOUNDS ARE DIMINISHED THROUGHOUT, PT NOTED TO HAVE SHALLOW RESPIRATIONS. SURGICAL SITE NOTED TO MIDLINE ABDOMEN WITH PREVENA WOUND VAC IN PLACE. ABDOMINAL BINDER OVER SURGICAL SITE, DRESSING C/D/I. PT REORIENTED TO PLACE, SITUATION, AND TIME. CALL LIGHT PROVIDED. SEASONAL GREENERY BUNDLER AT BEDSIDE TO MONITOR PT FOR SAFETY.
--- NOTE | 2018-08-30 07:38 | NUR ---
SHIFT SUMMARY- PT HAS REMAINED AOX4 SINCE APPROXIMATELY 2129 LAST NIGHT. VSS. VERY PLEASANT AND COOPERATIVE WITH CARE. PT HAS REMAINED ON BEDREST, BUT HAS SHIFTED SELF IN BED THROUGHOUT THE NIGHT. PARKS HAS REMAINED IN PLACE, PATENT AND DRAINING, CLEAR ITALIA URINE. NG TUBE HAS BEEN CONNECTED TO LOW, INTERMITTENT SUCTION WITH DARK GREEN DRAINAGE OF 50 ML NOTED THROUGHOUT THE NIGHT. PT MEDICATED MULTIPLE TIMES FOR PAIN THROUGHOUT THE NIGHT THAT RELIEVED WITH ORDERED MEDICATIONS. ORAL SWABS WITH ICE WATER PROVIDED FOR ORAL CARE AND COMFORT. PT REQUESTING TO EAT AND DRINK THIS AM, IF POSSIBLE. NO OTHER CHANGES NOTED FROM INITIAL ASSESSMENT. WILL CONTINUE TO MONITOR AND REPORT TO ONCOMING SHIFT. RN. BED IN LOW POSITION,CALL LIGHT IN REACH.
--- NOTE | 2018-08-30 08:07 | NUR ---
BEGINNING OF SHIFT Assumed care of pt at 0700. Report received from SIDDHARTHA Ji. Pt on 2 LPM NC, which is home dose of oxygen. Shift assessment completed. Incentive spirometer placed at bedside. This RN educated pt on usage of IS, then he demonstrated correct usage. Bed in lowest position. Call light in reach. Pt denies need at this time.
[2018-08-30 09:27] LABS: Hematocrit 31.4 % (37.0-53.0); Hemoglobin 9.2 g/dL (13.5-17.5); Mean Corpuscular HGB 25.1 pg (26.0-34.0); Mean Corpuscular HGB Conc 29.3 g/dL (31.5-36.5); Mean Corpuscular Volume 86 fL (80-100); Platelet Count 192 K/mm3 (150-400); RDW Coefficient Variation 14.8 % (11.7-14.2); RDW Standard Deviation 46.7 fL (35.1-46.3); Red Blood Cell Count 3.67 M/mm3 (4.30-5.90); White Blood Cell Count 8.87 K/mm3 (4.00-11.30)
[2018-08-30 09:41] LABS: Albumin, Blood 2.1 g/dL (3.4-5.0); Anion Gap 9 mmol/L (6-16); Blood Urea Nitrogen 17 mg/dL (8-24); Bun/Creatinine Ratio 12.1 (12.0-20.0); CO2, Blood 24 mmol/L (21-32); Calcium, Blood 6.6 mg/dL (8.5-10.1); Chloride, Blood 112 mmol/L (98-108); Creatinine, Blood 1.41 mg/dL (0.60-1.20); Glomerular Filtration Rate 51 (60-); Glucose, Blood 133 mg/dL (70-99); Magnesium, Blood 1.3 mg/dL (1.6-2.4); Phosphorus, Blood 1.9 mg/dL (2.5-4.9); Potassium, Blood 3.8 mmol/L (3.5-5.5); Sodium, Blood 145 mmol/L (136-145)
[2018-08-30 09:49] LABS: BAND PERCENT MAN 15 % (0-8); BASOPHILS PERCENT MAN 0 % (0-2); EOSINOPHILS PERCENT MAN 0 % (0-6); LYMPHOCYTES ABSOLUTE MAN 0.44 K/mm3 (0.84-5.20); LYMPHOCYTES PERCENT MAN 5 % (21-46); MONOCYTES ABSOLUTE MAN 0.35 K/mm3 (0.16-1.47); MONOCYTES PERCENT MAN 4 % (4-13); NEUTROPHILS ABSOLUTE MAN 8.07 K/mm3 (1.96-9.15); SEG NEUTROPHILS PERCENT MAN 76 % (41-73); TOTAL CELLS COUNTED 100
[2018-08-30 11:22] LABS: Bun/Creatinine Ratio 12.7 (12.0-20.0); Calcium, Blood 6.7 mg/dL (8.5-10.1); Creatinine, Blood 1.34 mg/dL (0.60-1.20); Potassium, Blood 3.8 mmol/L (3.5-5.5)
--- NOTE | 2018-08-30 17:15 | NUR ---
TRANSFER TO SURGICAL FLOOR No acute changes since shift assessment. Pt got OOB and sat in chair, tolerating this activity well. Pt's only report of pain during this activity was tugging from his indwelling urinary catheter. Pt continuously denied abdominal pain today. NG tube on low intermittent suction for entire shift up until it was clamped for transfer to surgical floor. Report given to surgical floor nurseEloise.
--- NOTE | 2018-08-30 20:02 | NUR ---
SHIFT SUMMARY PT TRANSFERRED FROM PCU AT 1700, VSS, NG LOW INTERMITTENT, ICE CHIPS/SIPS ONLY. PARKS PATENT & DRAINING YELLOW URINE. 2L NC BASELINE. DENIES PAIN. DENIES N&V. REPORT GIVEN TO SISI CARL.
[2018-08-31 00:23] LABS: BASOPHILS ABSOLUTE AUTO 0.01 K/mm3 (0.00-0.23); BASOPHILS PERCENT AUTO 0 % (0-2); EOSINOPHILS PERCENT AUTO 0 % (0-6); Hematocrit 29.3 % (37.0-53.0); Hemoglobin 8.6 g/dL (13.5-17.5); IMMATURE GRAN ABSOLUTE AUTO 0.04 K/mm3 (0.00-0.10); IMMATURE GRAN PERCENT AUTO 0 % (0-1); LYMPHOCYTES ABSOLUTE AUTO 0.61 K/mm3 (0.84-5.20); LYMPHOCYTES PERCENT AUTO 6 % (21-46); MONOCYTES ABSOLUTE AUTO 1.41 K/mm3 (0.16-1.47); MONOCYTES PERCENT AUTO 15 % (4-13); Mean Corpuscular HGB 24.9 pg (26.0-34.0); Mean Corpuscular HGB Conc 29.4 g/dL (31.5-36.5); Mean Corpuscular Volume 85 fL (80-100); Mean Platelet Volume 12.6 fL (9.1-12.4); NEUTROPHILS ABSOLUTE AUTO 7.52 K/mm3 (1.96-9.15); NEUTROPHILS PERCENT AUTO 78 % (41-73); Platelet Count 196 K/mm3 (150-400); RDW Coefficient Variation 14.8 % (11.7-14.2); RDW Standard Deviation 45.2 fL (35.1-46.3); Red Blood Cell Count 3.45 M/mm3 (4.30-5.90); White Blood Cell Count 9.59 K/mm3 (4.00-11.30)
[2018-08-31 00:39] LABS: Bun/Creatinine Ratio 14.5 (12.0-20.0); Calcium, Blood 6.6 mg/dL (8.5-10.1); Creatinine, Blood 1.24 mg/dL (0.60-1.20); Magnesium, Blood 1.7 mg/dL (1.6-2.4); Phosphorus, Blood 1.7 mg/dL (2.5-4.9); Potassium, Blood 4.1 mmol/L (3.5-5.5)
--- NOTE | 2018-08-31 07:00 | NUR ---
REPORT RECEIVED. ASSUMED PT CARE AT THIS TIME.
--- NOTE | 2018-08-31 07:30 | NUR ---
0730: PT SITTING UP TO SIDE OF BED AND TOLERATING WELL. CONTINUES TO DENY PAIN AND NAUSEA. SCANT AMOUNT GREEN DRAINAGE PRESENT IN NG TUBING. PARKS DC'D AND PT TOW; REQUESTS PULL UP FOR URINARY URGENCY. VSS, AFEBRILE, RATE WELL CONTROLLED WITH IV METOPROLOL AND MAINTAINS IN 80'S AFIB. CONTINUE TO ENCOURAGE OOB ACTIVITY. NOT YET PASSING GAS.
--- NOTE | 2018-08-31 08:00 | NUR ---
SUMMARY: POD [address] WILKINS. VSS, AFEBRILE CONTINUE TO ENCOURAGE TCDB AND IS USE. PT DENIES NAUSEA, SMALL AMOUNT GREEN DRAINAGE IN NG LIWS. DENIES PASSING GAS YET, TOLERATING SIPS AND CHIPS. CHARLY DC'D THIS AM AND PT DANGLING AT SIDE OF BED AND TOLERATING WELL. ENCOURAGE OOB ACTIVITY AND CONTINUE IV ANTIBIOTICS.
--- NOTE | 2018-08-31 08:25 | NUR ---
ABX STARTED PER EMAR. ASSITED PT IN REPOSITIONING IN BED. WARM BLANKET PROVIDED. SCDS REAPPLIED. PT STATES HE HAS NOT VOIDED SINCE PARKS REMOVAL. CALL LIGHT IN REACH.
--- NOTE | 2018-08-31 09:35 | NUR ---
DR HAYES TO ROOM FOR EVAL AND UPDATE. NO PLAN TO DC NG TODAY.
--- NOTE | 2018-08-31 09:58 | NUR ---
DR LEAL TO ROOM. IVF POTASSIUM INF STARTED. ASSISTED PT WITH IS.
--- NOTE | 2018-08-31 10:01 | NUR ---
URINAL BETWEEN LEGS PER PT REQUEST.
--- NOTE | 2018-08-31 12:01 | NUR ---
PT MEDICATED WITH METOPROLOL PER EMAR. HR 83 AT TIME OF ADMIN. PT STATES HE FEELS VERY TIRED AND WOULD LIKE TO CONT TO SLEEP. NO NEEDS EXPRESSED.
--- NOTE | 2018-08-31 13:29 | NUR ---
NEW BAG OF HEPARIN STARTED PER EMAR ORDERS. PT UP TO CHAIR. ASSISTED WITH IS.
[2018-08-31 14:13] LABS: BASOPHILS ABSOLUTE AUTO 0.01 K/mm3 (0.00-0.23); BASOPHILS PERCENT AUTO 0 % (0-2); EOSINOPHILS PERCENT AUTO 0 % (0-6); Hematocrit 26.9 % (37.0-53.0); IMMATURE GRAN ABSOLUTE AUTO 0.08 K/mm3 (0.00-0.10); IMMATURE GRAN PERCENT AUTO 1 % (0-1); LYMPHOCYTES ABSOLUTE AUTO 0.56 K/mm3 (0.84-5.20); LYMPHOCYTES PERCENT AUTO 6 % (21-46); MONOCYTES ABSOLUTE AUTO 1.32 K/mm3 (0.16-1.47); MONOCYTES PERCENT AUTO 14 % (4-13); Mean Corpuscular HGB Conc 29.7 g/dL (31.5-36.5); Mean Corpuscular Volume 84 fL (80-100); Mean Platelet Volume 12.8 fL (9.1-12.4); NEUTROPHILS ABSOLUTE AUTO 7.69 K/mm3 (1.96-9.15); NEUTROPHILS PERCENT AUTO 80 % (41-73); Platelet Count 199 K/mm3 (150-400); RDW Coefficient Variation 14.8 % (11.7-14.2); RDW Standard Deviation 45.8 fL (35.1-46.3); White Blood Cell Count 9.66 K/mm3 (4.00-11.30)
--- NOTE | 2018-08-31 14:45 | NUR ---
BANANA BAG STARTED PER HOSP ORDERS. CIWA ASSESSMENT CHARTED. CALL LIGHT IN REAC. PT SITTING UP IN CHAIR. DENIES NAUSEA, DENIES PAIN.
--- NOTE | 2018-08-31 15:15 | NUR ---
HEPARIN RATE INCREASED PER EMAR ORDERS.
--- NOTE | 2018-08-31 16:35 | NUR ---
ABX STARTED. BANANA BAG ON HOLD DURING ABX INFUSION. PT SITTING UP IN CHAIR.
--- NOTE | 2018-08-31 17:30 | NUR ---
ABX COMPLETE. IV LINE FLUSHED. BANANA BAG RESTARTED. PT BACK IN BED.
--- NOTE | 2018-08-31 18:39 | NUR ---
PT MEDICATED WITH METOPROLOL PER EMAR ORDERS. HR 89 PER PALP. 200ML YELLOW URINE EMPTIED FROM URINAL. PT AWAKE AND WATCHING TV. DENIES PAIN. DENIES NAUSEA. ASKING FOR SOMETHING TO EAT.
--- NOTE | 2018-08-31 20:52 | NUR ---
OFFERED PM CARE
--- NOTE | 2018-09-01 04:15 | NUR ---
POD 3 S/P EXP LAP WITH PATRIA. NO SIG CHANGES DURING NIGHT. PT WAS WHEEZY AND WAS ABLE TO GET ORDER FOR NEB TX AND SOUNDS MUCH BETTER THIS AM. BIGGEST COMPLAINT WAS SORE THROAT. OBTAINED ORDER AND GAVE HURRICAINE SPRAY WHICH HAS HELPED. PT STATES FEELING MUCH BETTER. STILL NO SIG BT OR FLATUS. BUT DOES DENY NAUSEA. PLAN FOR INCREASING MOBILITY TODAY. CONT WITH IVF AND HEPARIN GTT. PT IS ONLY ON SIPS AND ICE CHIPS. PROVENA CDI AND SECURED WITH ABD BINDER. CALL LIGHT IN REACH.
[2018-09-01 06:24] LABS: Magnesium, Blood 1.9 mg/dL (1.6-2.4)
--- NOTE | 2018-09-01 06:39 | NUR ---
PT HAD LARGE AMT OF LOOSE STOOL AND FLATUS. PT STATES FEELING MUCH BETTER. NGT DID PUT OUT ZERO THIS THIS.
[2018-09-01 07:01] LABS: Anion Gap 8 mmol/L (6-16); Blood Urea Nitrogen 14 mg/dL (8-24); Bun/Creatinine Ratio 13.6 (12.0-20.0); CO2, Blood 25 mmol/L (21-32); Calcium, Blood 6.8 mg/dL (8.5-10.1); Chloride, Blood 108 mmol/L (98-108); Creatinine, Blood 1.03 mg/dL (0.60-1.20); Glomerular Filtration Rate >60 (60-); Glucose, Blood 110 mg/dL (70-99); Phosphorus, Blood 2.4 mg/dL (2.5-4.9); Potassium, Blood 3.2 mmol/L (3.5-5.5); Sodium, Blood 141 mmol/L (136-145)
--- NOTE | 2018-09-01 12:23 | NUR ---
TELEPHONE CALL WITH SURGEON. NEW ORDERS: DC NG TUBE AND START CLEAR LIQUID DIET.
--- NOTE | 2018-09-01 12:30 | NUR ---
NG TUBE DISCONTINUED.
--- NOTE | 2018-09-01 13:00 | NUR ---
CLEAR LIQUIDS STARTED. PT DENIES ANY NAUSEA.
--- NOTE | 2018-09-01 16:11 | NUR ---
SHIFT SUMMARY PT A&OX4, VSS, TELE WAND ATRIAL PACER OCC PVCS @ 67, 2LNC AT [facility]. POD#3 EXP LAP W/ PATRIA AND SB RESECTION, PREVENA IN PLACE, BINDER ON. NG WAS REMOVED TODAY, PT JAYME CLEAR LIQUIDS, DENIES N&V. VOIDING WELL, USES URINAL, SEVERAL BM'S TODAY. AMB W/FWW SBA TO BSC AND CHAIR, WALKED HALLWAY WITH PHYSTHERAPY. IV 20G RAC INFUSING HEPARIN AT 31.5. POWERGLIDE SARAHI ALTERNATE INFUSE ABX AND K PHOS. TOMORROW PLAN IS TO DC HEPARIN, START ELIQUIS, START REG ADULT DIET, AND POSS DC TO SNF ON WEDNESDAY PER SURGEON. WILL CTM & TX PER EMAR UNTIL REPORT GIVEN TO ONCOMING DASHAWN RN.
[2018-09-02 06:14] LABS: Hematocrit 23.6 % (37.0-53.0); Hemoglobin 7.2 g/dL (13.5-17.5); Mean Corpuscular HGB 25.1 pg (26.0-34.0); Mean Corpuscular HGB Conc 30.5 g/dL (31.5-36.5); Mean Corpuscular Volume 82 fL (80-100); Mean Platelet Volume 12.1 fL (9.1-12.4); NRBC ABSOLUTE 0.02 K/mm3 (0.00-0.02); NRBC Auto 0.3 /100 WBC (0.0-0.2); Platelet Count 180 K/mm3 (150-400); RDW Coefficient Variation 14.7 % (11.7-14.2); RDW Standard Deviation 44.1 fL (35.1-46.3); Red Blood Cell Count 2.87 M/mm3 (4.30-5.90); White Blood Cell Count 6.81 K/mm3 (4.00-11.30)
--- NOTE | 2018-09-02 06:38 | NUR ---
POD 4 S/P EXP LAP WITH PATRIA. DID FAIR DURING NIGHT. HAS CONT WITH LIQ STOOL. PAIN IS TOLERABLE. SCROTUM IS VERY SWOLLEN AND RED FROM STOOL. PT HAS SCROTUM ELEVATED WITH ICE AND BUSINESS SYSTEMS TECHNICIAN APPLIED CALAZYME. HEPARIN GTT STILL INFUSING. CALL LIGHT IN REACH
[2018-09-02 06:39] LABS: Albumin, Blood 1.7 g/dL (3.4-5.0); Anion Gap 10 mmol/L (6-16); Blood Urea Nitrogen 10 mg/dL (8-24); Bun/Creatinine Ratio 11.2 (12.0-20.0); CO2, Blood 22 mmol/L (21-32); Calcium, Blood 6.9 mg/dL (8.5-10.1); Chloride, Blood 110 mmol/L (98-108); Creatinine, Blood 0.89 mg/dL (0.60-1.20); Glomerular Filtration Rate >60 (60-); Glucose, Blood 108 mg/dL (70-99); Magnesium, Blood 1.6 mg/dL (1.6-2.4); Phosphorus, Blood 3.9 mg/dL (2.5-4.9); Potassium, Blood 3.2 mmol/L (3.5-5.5); Sodium, Blood 142 mmol/L (136-145)
--- NOTE | 2018-09-02 08:58 | NUR ---
OT HERE TO SEE PT. PT HEPARIN DC'D PER ORDER.
--- NOTE | 2018-09-02 09:32 | NUR ---
DISCUSSED PT'S STATUS WITH DR ALEXANDER.
--- NOTE | 2018-09-02 09:33 | NUR ---
DISCUSSED PT'S HR INCREASE WITH THERAPY
--- NOTE | 2018-09-02 11:15 | NUR ---
PT ADVOCATE IN TALKING WITH PT PER PT REQ.
--- NOTE | 2018-09-02 17:13 | NUR ---
TELE DC'D EARLIER PER DR ALEXANDER. PT HR BEEN LOW 100'S WHEN AT REST WITH INCREASING WITH ACTIVITY THEN BACK TO LOW 100'S.
--- NOTE | 2018-09-02 17:14 | NUR ---
SHIFT SUMMARY PT TOLERATING DIET. PT VOIDING, HAVING MULT LOOSE STOOL. PT BEEN UP WITH ASSIST. PT WORKED WITH THERAPY. PT BEEN UP TO CHAIR. PT WAS IRRITABLE EARLIER THIS AM WHEN WORKING WITH OT, BEEN PLEASANT AND COOP THIS AFTERNOON. TELE DC'D EARLIER PER DR ALEXANDER. PT BEEN ASSISTED WITH ADL'S PRN.
--- NOTE | 2018-09-03 05:31 | NUR ---
SUMMARY: PT IS POD5. NO ACUTE CHANGE OVERNIGHT, VSS. SURGICAL SITE WNL, PT CONTINUES TO HAVE FREQUENT LIQUID BM'S. HAS DENIED PAIN, OR NAUSEA TONIGHT. JAYME REG DIET. PLAN IS FOR POSSIBLE SNF, WILL CTM AND REPORT TO DAY RN.
--- NOTE | 2018-09-03 13:57 | NUR ---
therapy in to see pt.
--- NOTE | 2018-09-03 17:42 | NUR ---
SUMMARY NO ACUTE CHANGES T/O SHIFT. PT SAT UP IN CHAIR FOR MAIN PART OF SHIFT. WORKED W/THERAPY. HAS DENIED PAIN. PREVENA WOUND VAC INTACT TO MIDLINE INCISION. PT HAS URINARY URGENCY; USES BSC.
[2018-09-04 04:16] LABS: Hematocrit 23.3 % (37.0-53.0); Hemoglobin 7.1 g/dL (13.5-17.5); Mean Corpuscular HGB 24.5 pg (26.0-34.0); Mean Corpuscular HGB Conc 30.5 g/dL (31.5-36.5); Mean Corpuscular Volume 80 fL (80-100); Mean Platelet Volume 12.9 fL (9.1-12.4); NRBC ABSOLUTE 0.03 K/mm3 (0.00-0.02); NRBC Auto 0.4 /100 WBC (0.0-0.2); Platelet Count 233 K/mm3 (150-400); RDW Coefficient Variation 15.2 % (11.7-14.2); RDW Standard Deviation 44.3 fL (35.1-46.3)
[2018-09-04 04:54] LABS: Anion Gap 9 mmol/L (6-16); Blood Urea Nitrogen 8 mg/dL (8-24); Bun/Creatinine Ratio 8.8 (12.0-20.0); CO2, Blood 24 mmol/L (21-32); Calcium, Blood 7.1 mg/dL (8.5-10.1); Chloride, Blood 112 mmol/L (98-108); Creatinine, Blood 0.91 mg/dL (0.60-1.20); Glomerular Filtration Rate >60 (60-); Glucose, Blood 111 mg/dL (70-99); Potassium, Blood 3.2 mmol/L (3.5-5.5); Sodium, Blood 145 mmol/L (136-145)
--- NOTE | 2018-09-04 07:55 | NUR ---
IV TO RAC NOT FLUSHING
[2018-09-04] MEDS ORDERED: FAMO20 PO (09:57)
[2018-09-04] MEDS ORDERED: HYDR1TAB94 PO (09:57)
--- NOTE | 2018-09-04 10:35 | NUR ---
PT BEING DISCHARGED TO [facility] WITHIN THE HOUR. IV'S DC'D. ARIES RETURNED TO PT. ALL PERSONAL BELONGINGS GATHERED AND PACKED UP TO GO. T.O. DR. QUINTERO TO REMOVE PROVENA WOUND VAC--DC'D AND ADH. SURGICAL DRESSING PLACED OVER KAMERON WHICH WERE CDI. ABD BINDER REMAINS IN PLACE.
--- NOTE | 2018-09-04 11:23 | NUR ---
REPORT GIVEN TO ITALIA FRANKLIN AT [facility].
== END 2018-09-04 11:03 | DRG 330 ==
LOC: ER 03:00 → MEDS 05:41 → PCU 05:41 → MEDS 06:52 → PCU 08-29 17:39 → SURS 08-30 17:03
PROVIDERS: Emergency Medicine; Internal Medicine; Surgery; ADMIT Internal Medicine
PROC: 0DN80ZZ Release Small Intestine, Open Approach (ICD-10-PCS; principal; 2018-08-29 15:00)
PROC: 0DT80ZZ Resection of Small Intestine, Open Approach (ICD-10-PCS; 2018-08-29 15:00)
DX: K56.609 Unspecified intestinal obstruction, unspecified as to partial versus complete obstruction (principal); N20.1 Calculus of ureter; I82.402 Acute embolism and thrombosis of unspecified deep veins of left lower extremity; E78.5 Hyperlipidemia, unspecified; M10.9 Gout, unspecified; K21.9 Gastro-esophageal reflux disease without esophagitis; I12.9 Hypertensive chronic kidney disease with stage 1 through stage 4 chronic kidney disease, or unspecified chronic kidney disease; N18.3 Chronic kidney disease, stage 3 (moderate); E11.22 Type 2 diabetes mellitus with diabetic chronic kidney disease; I48.2 Chronic atrial fibrillation; Z86.718 Personal history of other venous thrombosis and embolism; Z79.4 Long term (current) use of insulin; Z79.01 Long term (current) use of anticoagulants; N26.1 Atrophy of kidney (terminal); J44.9 Chronic obstructive pulmonary disease, unspecified; Z99.81 Dependence on supplemental oxygen; D63.1 Anemia in chronic kidney disease; D50.9 Iron deficiency anemia, unspecified; E83.42 Hypomagnesemia
CPT/HCPCS: 36415; 74176; 80048; 80053; 80069; 82330; 82947; 83605; 83690; 83735; 84100; 84132; 84443; 84484; 85025; 85027; 85610; 85730; 88307; 90686; 93005; 93010; 94640; 94760; 96361; 96365; 96375; 97116; 97162; 97166; 97530; 99285-25; C1751; J0295; J0330; J0610; J1170; J1644; J2370; J2405; J2543; J2550; J2710; J3010; J3475; J3480; J7030; J7042; J7060; J7120

== ENCOUNTER 2018-09-14 16:24 | Inpatient (IN) | payer MEDICARE ==
[~2018-09-14] VITALS: Ht 172.7 cm; Wt 86.1 kg
[~2018-09-14 16:24] MED LIST changes: +ALBU3IS NEB; +FAMO20 PO; +HYDR1TAB94 PO
[2018-09-14] MEDS ORDERED: ACIDOPHILUS1 EAC2 PO (16:42)
[2018-09-14] MEDS ORDERED: SACC250C (16:43)
[2018-09-14] MEDS ORDERED: VANC125 PO (16:43)
[2018-09-14] MEDS ORDERED: MYRBETRIQ25 MG PO (18:50)
[2018-09-14 18:52] LABS: International Normalized Ratio 1.49; Prothrombin Time Results 15.2 Sec (9.7-11.5)
[2018-09-14] MEDS ORDERED: ACETAMINOPHEN650 MG PO (18:55)
[2018-09-14] MEDS ORDERED: DULERA 200 MCG/13 GM INH (18:56)
[2018-09-14 20:39] LABS: Percent Saturation 7.2 % (20.0-50.0)
[2018-09-15 02:05] LABS: Adenovirus F 40/41 Not Detected (NOT DETECT); Astrovirus Not Detected (NOT DETECT); Campylobacter Sp Not Detected (NOT DETECT); Cryptosporidium Not Detected (NOT DETECT); Cyclospora Cayetanensis Not Detected (NOT DETECT); E. Coli O157 Not Detected (NOT DETECT); Entamoeba Histolytica Not Detected (NOT DETECT); Enteroaggregative E. coli-EAEC Not Detected (NOT DETECT); Enteropathogenic E. coli-EPEC Not Detected (NOT DETECT); Enterotoxigenic E. coli-ETEC Not Detected (NOT DETECT); Giardia Lamblia Not Detected (NOT DETECT); Norovirus GI/GII Not Detected (NOT DETECT); Plesiomonas Shigelloides Not Detected (NOT DETECT); Rotavirus A Not Detected (NOT DETECT); Salmonella Sp Not Detected (NOT DETECT); Sapovirus Not Detected (NOT DETECT); Shiga Toxin-prod E. coli-STEC Not Detected (NOT DETECT); Shigella/Enteroin E. coli-EIEC Not Detected (NOT DETECT); Vibrio Cholerae Not Detected (NOT DETECT); Vibrio Sp Not Detected (NOT DETECT); Yersinia Enterocolitica Not Detected (NOT DETECT)
[2018-09-15 04:09] LABS: BASOPHILS ABSOLUTE AUTO 0.04 K/mm3 (0.00-0.23); BASOPHILS PERCENT AUTO 0 % (0-2); EOSINOPHILS ABSOLUTE AUTO 0.02 K/mm3 (0.00-0.68); EOSINOPHILS PERCENT AUTO 0 % (0-6); Hematocrit 27.1 % (37.0-53.0); Hemoglobin 7.8 g/dL (13.5-17.5); IMMATURE GRAN ABSOLUTE AUTO 0.12 K/mm3 (0.00-0.10); IMMATURE GRAN PERCENT AUTO 1 % (0-1); LYMPHOCYTES ABSOLUTE AUTO 0.55 K/mm3 (0.84-5.20); LYMPHOCYTES PERCENT AUTO 5 % (21-46); MONOCYTES PERCENT AUTO 15 % (4-13); Mean Corpuscular HGB 23.6 pg (26.0-34.0); Mean Corpuscular HGB Conc 28.8 g/dL (31.5-36.5); Mean Corpuscular Volume 82 fL (80-100); Mean Platelet Volume 11.4 fL (9.1-12.4); NEUTROPHILS ABSOLUTE AUTO 8.67 K/mm3 (1.96-9.15); NEUTROPHILS PERCENT AUTO 79 % (41-73); Platelet Count 515 K/mm3 (150-400); RDW Coefficient Variation 16.2 % (11.7-14.2); RDW Standard Deviation 48.2 fL (35.1-46.3); Red Blood Cell Count 3.31 M/mm3 (4.30-5.90)
[2018-09-15 04:25] LABS: Anion Gap 9 mmol/L (6-16); Blood Urea Nitrogen 11 mg/dL (8-24); Bun/Creatinine Ratio 9.7 (12.0-20.0); CO2, Blood 23 mmol/L (21-32); Calcium, Blood 7.1 mg/dL (8.5-10.1); Chloride, Blood 118 mmol/L (98-108); Creatinine, Blood 1.13 mg/dL (0.60-1.20); Glomerular Filtration Rate >60 (60-); Glucose, Blood 118 mg/dL (70-99); Potassium, Blood 3.5 mmol/L (3.5-5.5); Sodium, Blood 150 mmol/L (136-145)
--- NOTE | 2018-09-15 04:48 | NUR ---
SHIFT SUMMARY: PATIENT ARRIVED TO ROOM PCU2 VIA GURNEY AT APPROX 0030. PATIENT ALERT AND ORIENTED, ABLE TO PIVOT TRANSFER FROM BED TO BSC INDEPENDENTLY. SKIN EXCORIATED AROUND RECTUM, BARRIER CREAM TO BE USED. STOOL SAMPLE NEGATIVE FOR GI PANEL. ALL VSS, BED LOW AND LOCKED WITH EXIT ALARM ON, CALL LIGHT WITHIN REACH AND USED APPROPRIATLY.
--- NOTE | 2018-09-15 08:00 | NUR ---
pt laying in bed awake a/ox3, irritable, can be very short, and rude at times, then his affect will be pleasant and attempting to tease. lungs have exp wheezing t/o, resp even and mildly labored, no cough noted, hrr, tele in place running sr per monitor, see strip, 3+ edema noted to b/l le, ppp faint, cap refill <3sec, vs stable, afebrile, iv site to r hand man when flushed, will place new iv. nothing that this nurse see's to place iv in so asked charge nurse to place power glide. btx4 hyper active bt, abd round soft, not tender when laying, but very tender when touched, incont of urine, attends in place, skin has wound to right youssef with dressing in place, other coffman c/w/d, maew, stands pretty well with sba, chong, call light in reach.
--- NOTE | 2018-09-15 17:20 | NUR ---
Per admit trigger, I met with Mr. Robbins to discuss an advanced directive. He was very tired and did not want to talk about this document. I left the information and advised sheet folder services would remain available.
--- NOTE | 2018-09-15 19:30 | NUR ---
pt had drainage tube placed to right abd has purelent material in bag, tolerated procedure well. vs remain stable, no further changes this shift. call light in reach.
[2018-09-16 04:52] LABS: BASOPHILS ABSOLUTE AUTO 0.05 K/mm3 (0.00-0.23); BASOPHILS PERCENT AUTO 0 % (0-2); EOSINOPHILS ABSOLUTE AUTO 0.03 K/mm3 (0.00-0.68); EOSINOPHILS PERCENT AUTO 0 % (0-6); Hematocrit 28.3 % (37.0-53.0); IMMATURE GRAN ABSOLUTE AUTO 0.14 K/mm3 (0.00-0.10); IMMATURE GRAN PERCENT AUTO 1 % (0-1); LYMPHOCYTES ABSOLUTE AUTO 0.94 K/mm3 (0.84-5.20); LYMPHOCYTES PERCENT AUTO 8 % (21-46); MONOCYTES ABSOLUTE AUTO 1.75 K/mm3 (0.16-1.47); MONOCYTES PERCENT AUTO 14 % (4-13); Mean Corpuscular HGB 23.6 pg (26.0-34.0); Mean Corpuscular HGB Conc 28.3 g/dL (31.5-36.5); Mean Corpuscular Volume 84 fL (80-100); Mean Platelet Volume 11.3 fL (9.1-12.4); NEUTROPHILS ABSOLUTE AUTO 9.25 K/mm3 (1.96-9.15); NEUTROPHILS PERCENT AUTO 76 % (41-73); Platelet Count 571 K/mm3 (150-400); RDW Coefficient Variation 16.2 % (11.7-14.2); RDW Standard Deviation 49.5 fL (35.1-46.3); Red Blood Cell Count 3.39 M/mm3 (4.30-5.90); White Blood Cell Count 12.16 K/mm3 (4.00-11.30)
[2018-09-16 05:10] LABS: Albumin, Blood 1.5 g/dL (3.4-5.0); Anion Gap 9 mmol/L (6-16); Blood Urea Nitrogen 11 mg/dL (8-24); Bun/Creatinine Ratio 9.6 (12.0-20.0); CO2, Blood 22 mmol/L (21-32); Calcium, Blood 7.7 mg/dL (8.5-10.1); Chloride, Blood 116 mmol/L (98-108); Creatinine, Blood 1.15 mg/dL (0.60-1.20); Glomerular Filtration Rate >60 (60-); Glucose, Blood 145 mg/dL (70-99); Phosphorus, Blood 2.6 mg/dL (2.5-4.9); Potassium, Blood 3.7 mmol/L (3.5-5.5); Sodium, Blood 147 mmol/L (136-145)
--- NOTE | 2018-09-16 06:01 | NUR ---
SHIFT SUMMARY: PATIENT BOWEL MOVEMENTS APPEAR TO BE FIRMING UP SOMEWHAT. PATEINT STATING HE IS FEELING BETTER, APPEARS TO BE MORE STABLE WHEN GETTING TO THE BEDSIDE COMMODE. DRAIN C/D/I, VSS, BED LOW AND LOCKED WITH EXIT ALARM ON AND CALL LIGHT IN REACH.
--- NOTE | 2018-09-16 08:00 | NUR ---
pt laying in bed wakes easily this am, he is in good spirits this am. states he slept pretty well last night, lungs are wheezing t/o, dim in bases, resp even and unlabored, occ nonproductive cough noted, hrr, 3+ edema noted to b/l le, ppp faint, cap refill <sec, vs stable, low grade temp., power glide to meek site is clear and patent, btx4, abd round soft tender to touch, drain to left abd in place draining white purelent fluid. attends in place for occ incont, pt frequently gets up to bedside cammode with loose stools, skin has a dressing to right youssef, maew, stands pretty well, just needs stand by assist to move to chair. chong, call light in reach.
--- NOTE | 2018-09-16 13:30 | NUR ---
PT HAS BEEN UP TO CHAIR FOR LUNCH, DOING OK, SEEMS CONFUSED AT TIMES, BUT FOR THE MOST PART IS ORIENTED. CALL LIGHT IN REACH.
--- NOTE | 2018-09-16 19:33 | NUR ---
PT HAD AN UNEVENTFUL DAY. NO ACUTE CHANGES THIS SHIFT. CALL LIGHT IN REACH.
--- NOTE | 2018-09-16 20:50 | NUR ---
PM NOTE. ASSUMED CARE OF PT APROX 1900, PT IS A&Ox4, PLEASENT AND COOPERATIVE WITH CARE, PT WAS ADMITTED DUE TO COLITIS, PT HAD RECENT COLECTOMY THAT HAS RESULTED IN AN ABD ABCESS. PT CURRENTLY HAS A DRAIN TO THE LEFT LOWER ABD AREA, CREAMY YELLOW FLUID IS IN THE DRAIN BAG AT THIS TIME. PT'S HRR AT 104, PT'S BP 140/72. 3+ EDEMA NOTED TO THE PT'S BLE AND GENERALIZED.NONPITTING EDEMA NOTED EVERYWHERE ELSE. PT'S L/S COARSE WITH WHEEZES T/O. PT IS CURRENTLY ON RA WITH STATS >90% AND USES 2L VIA NC FOR SLEEP PRN. PT HAS CONGESTED AND PRODUCTIVE COUGH AT THIS TIME, PT SWALLOWS SPUTUM SO COLOR/CONSISTENCY IS UNABLE TO BE DETERMINED AT THIS TIME. BT ARE PRESENT BUT HYPOACTIVE IN ALL QUADRANTS, ABD IS MODERATLY DISTENDED, FIRM AND TENDER TO PALP. PT'S SCROTUM AND BUTTOCKS IS RED AND TENDER FROM FREQUENT LOOSE STOOLS, BARRIER CREAM APPLIED TO THESE AREAS.. CALL LIGHT IN REACH, BED IS LOCKED AND LOW WILL CONTINUE TO MONITOR.
--- NOTE | 2018-09-17 01:01 | NUR ---
PT XFER... PT WAS XFERED TO MEDICAL FLOOR AT 0100, REPORT WAS GIVEN TO MEDICAL FLOOR RN. ALL OF PT'S BELONGINGS WERE PACKED AND WENT WITH THE PT. PT'S VS HAVE BEEN STABLE, PT DENIES ANY CHEST PAIN/PRESSURE, N/V OR PAIN.
[2018-09-17 05:13] LABS: BASOPHILS ABSOLUTE AUTO 0.03 K/mm3 (0.00-0.23); BASOPHILS PERCENT AUTO 0 % (0-2); EOSINOPHILS ABSOLUTE AUTO 0.03 K/mm3 (0.00-0.68); EOSINOPHILS PERCENT AUTO 0 % (0-6); Hematocrit 28.8 % (37.0-53.0); Hemoglobin 7.6 g/dL (13.5-17.5); IMMATURE GRAN ABSOLUTE AUTO 0.12 K/mm3 (0.00-0.10); IMMATURE GRAN PERCENT AUTO 1 % (0-1); LYMPHOCYTES ABSOLUTE AUTO 0.69 K/mm3 (0.84-5.20); LYMPHOCYTES PERCENT AUTO 8 % (21-46); MONOCYTES ABSOLUTE AUTO 1.22 K/mm3 (0.16-1.47); MONOCYTES PERCENT AUTO 14 % (4-13); Mean Corpuscular HGB Conc 26.4 g/dL (31.5-36.5); Mean Platelet Volume 11.4 fL (9.1-12.4); NEUTROPHILS ABSOLUTE AUTO 6.82 K/mm3 (1.96-9.15); NEUTROPHILS PERCENT AUTO 77 % (41-73); Platelet Count 450 K/mm3 (150-400); RDW Coefficient Variation 16.2 % (11.7-14.2); RDW Standard Deviation 51.6 fL (35.1-46.3); Red Blood Cell Count 3.31 M/mm3 (4.30-5.90); White Blood Cell Count 8.91 K/mm3 (4.00-11.30)
[2018-09-17 05:26] LABS: Mean Corpuscular Volume 87 fL (80-100)
[2018-09-17 05:34] LABS: Albumin, Blood 1.4 g/dL (3.4-5.0); Anion Gap 7 mmol/L (6-16); Blood Urea Nitrogen 10 mg/dL (8-24); Bun/Creatinine Ratio 8.9 (12.0-20.0); CO2, Blood 21 mmol/L (21-32); Calcium, Blood 7.9 mg/dL (8.5-10.1); Chloride, Blood 119 mmol/L (98-108); Creatinine, Blood 1.12 mg/dL (0.60-1.20); Glomerular Filtration Rate >60 (60-); Glucose, Blood 118 mg/dL (70-99); Phosphorus, Blood 2.8 mg/dL (2.5-4.9); Potassium, Blood 3.6 mmol/L (3.5-5.5); Sodium, Blood 147 mmol/L (136-145)
--- NOTE | 2018-09-17 06:00 | NUR ---
SHIFT SUMMARY 0105 RECEIVED PT TO RM 305 VIA W/C FROM PCU 2. PT IS A&O, PLEASANT AND CO-OP. PT ORIGINALLY ADMITTED TO R/O C-DIFF COLITIS; NEGATIVE. RECEIVED REPORT FROM CAMILA CARL, PT RECENTLY HAD SBO WITH SM BOWEL RESECTION AND PARTIAL COLECTOMY 11 DAYS AGO. ABD SCAR HEALING WITH A COUPLE OF STERI STRIPS REMAINING ON LOWER MID ABD. CT GUIDED DRAIN PLACED TO LLQ D/T INTRAABDOMINAL ABSCESS AFTER RECENT SX. 25cc OF CREAMY WHITE/YELLOW DRAINAGE SENT FOR CX PER ORDERS. PER CAMILA CARL PT'S SCROTUM AND RECTUM ARE EXCORIATED FROM HAVING FREQUENT LOOSE STOOLS. CURRENTLY ONLY 1 STOOL SINCE TX. VOIDING ONLY SM AMT, BUT NOT DRINKING MUCH FOR PO SINCE TX EITHER. CALL LT IN REACH. ABLE TO MAKE NEEDS KNOWN. BLE'S SLIGHTLY SWOLLEN WITH SM AMT REDNESS SCATTERED. FOAM DRSG ON RLE; C/D/I TO PREVENT INFECTION "WHEN WATER BLISTER POPS". WILL MONITOR.
--- NOTE | 2018-09-17 12:35 | NUR ---
Initial Visit: Palliative Care Consult for goals of care. Pt is A&O and denies pain at this time. Pt reports occasional anxiety due to not being home in 2 weeks. Engaged in therapeutic conversation about goals of care. Pt reports that he lives at home alone and does not believe in God. He states that he has trouble keeping his home clean and is afraid of bending over to pick somethin up and falling. During conversation when asked questions for goals of care Pt tends to deflect or answer in a non traditional way eventually coming up with an answer. Discussion was made about having caregivers come into the home to help with cleaning and he is adamant against this idea. He expresses concerns of people steeling from him. With furthur discussion of goals of care Pt becomes adamant against an need at this time. Spoke with Pt's nurse Uzma and she reports no concerns at this time. Will remain available.
--- NOTE | 2018-09-17 18:28 | NUR ---
SHIFT SUMMARY PATIENT HAS HAD INCONTINENT STOOLS. HE IS A 1 PERSON ASSIST TO THE BATHROOM WITH A WALKER. STEADY ON FEET WHEN USING WALKER.
[2018-09-18 04:46] LABS: BASOPHILS ABSOLUTE AUTO 0.04 K/mm3 (0.00-0.23); BASOPHILS PERCENT AUTO 1 % (0-2); EOSINOPHILS ABSOLUTE AUTO 0.03 K/mm3 (0.00-0.68); EOSINOPHILS PERCENT AUTO 0 % (0-6); Hematocrit 27.8 % (37.0-53.0); Hemoglobin 7.8 g/dL (13.5-17.5); IMMATURE GRAN ABSOLUTE AUTO 0.24 K/mm3 (0.00-0.10); IMMATURE GRAN PERCENT AUTO 3 % (0-1); LYMPHOCYTES ABSOLUTE AUTO 0.75 K/mm3 (0.84-5.20); LYMPHOCYTES PERCENT AUTO 9 % (21-46); MONOCYTES ABSOLUTE AUTO 1.08 K/mm3 (0.16-1.47); MONOCYTES PERCENT AUTO 12 % (4-13); Mean Corpuscular HGB 22.9 pg (26.0-34.0); Mean Corpuscular HGB Conc 28.1 g/dL (31.5-36.5); Mean Corpuscular Volume 82 fL (80-100); Mean Platelet Volume 11.5 fL (9.1-12.4); NEUTROPHILS ABSOLUTE AUTO 6.56 K/mm3 (1.96-9.15); NEUTROPHILS PERCENT AUTO 75 % (41-73); Platelet Count 455 K/mm3 (150-400); RDW Coefficient Variation 16.1 % (11.7-14.2); RDW Standard Deviation 47.7 fL (35.1-46.3)
[2018-09-18 05:02] LABS: Albumin, Blood 1.5 g/dL (3.4-5.0); Anion Gap 8 mmol/L (6-16); Blood Urea Nitrogen 8 mg/dL (8-24); Bun/Creatinine Ratio 7.1 (12.0-20.0); CO2, Blood 24 mmol/L (21-32); Calcium, Blood 7.6 mg/dL (8.5-10.1); Chloride, Blood 117 mmol/L (98-108); Creatinine, Blood 1.12 mg/dL (0.60-1.20); Glomerular Filtration Rate >60 (60-); Glucose, Blood 91 mg/dL (70-99); Potassium, Blood 3.5 mmol/L (3.5-5.5); Sodium, Blood 149 mmol/L (136-145)
[2018-09-18 05:06] LABS: BAND PERCENT MAN 2 % (0-8); BASOPHILS PERCENT MAN 0 % (0-2); EOSINOPHILS ABSOLUTE MAN 0.17 K/mm3 (0.00-0.68); EOSINOPHILS PERCENT MAN 2 % (0-6); LYMPHOCYTES ABSOLUTE MAN 0.17 K/mm3 (0.84-5.20); LYMPHOCYTES PERCENT MAN 2 % (21-46); METAMYELOCYTE ABSOLUTE MAN 0.08 K/mm3 (0.00-0.00); METAMYELOCYTE PERCENT MAN 1 % (0-0); MONOCYTES ABSOLUTE MAN 0.52 K/mm3 (0.16-1.47); MONOCYTES PERCENT MAN 6 % (4-13); NEUTROPHILS ABSOLUTE MAN 7.74 K/mm3 (1.96-9.15); SEG NEUTROPHILS PERCENT MAN 87 % (41-73); TOTAL CELLS COUNTED 100
--- NOTE | 2018-09-18 06:18 | NUR ---
NOC SHIFT SUMMARY THIS PT HAS BEEN IRRITABLE THIS NIGHT AT TIMES. DURING INITIAL SHIFT ASSESSMENT HE REFUSED TO ALLOW ASSESMENT OF HIS BACK OR TO ROLL OVER OR MOVE. HE HAS HAD 4 EPISODES OF DIARRHEA THIS NIGHT. DURING ONE EPISODE HE COMPLAINED OF PAIN AT HIS DRAINAGE SITE. THIS PAIN IMPROVED QUITE A LOT ONCE HE LAYED BACK DOWN IN BED. CURRENTLY LYING IN BED AND APPEARS IN NO ACUTE DISTRESS. WILL CONTINUE TO MONITOR.
--- NOTE | 2018-09-18 07:35 | NUR ---
RN CALLED TO ROOM BY WASH BARREL LEADER. PT HAD PULLED THE SPIKES FROM IV BAGS AND PULLED TUBING FROM END OF POWERGLIDE. POWERGLIDE STILL FLUSHES WELL. PT ALSO PULLED TUBING FROM SCD'S AT THE ADAPTOR. REPLACED SCD'S. ASSISTED PT TO RESTROOM AND BACK TO BED. BED IN LOWEST POSITION WITH ALARM ON. CALL LIGHT IN REACH. WCT.
--- NOTE | 2018-09-18 17:57 | NUR ---
SHIFT SUMMARY: PT CONT TO HAVE LOOSE STOOLS. THEY ARE NOW STARTING TO BULK UP INSEAD OF STRAIGHT LIQUID. HE IS TOLERATING MEALS WELL. 1 ASSIST W/FWW AND GB. DR. AMARAL IN TO SEE PT FOR CONSULTATION. LLQ DRAIN IS PUTTING OUT YELLOW MILKY LIQUID.
--- NOTE | 2018-09-19 05:23 | NUR ---
NOC SHIFT SUMMARY THIS PT HAS BEEN QUITE RUDE AT TIMES THIS NIGHT. HE BECOMES IRRITATED EASILY WITH CARE. HE REFUSED TO ALLOW A COMPLETE HEAD TO TOE ASSESMENT AND WOULD NOT MOVE ALLOW HIS BACK TO BE ASSESSED. THIS MORNING HE SEEMS TO BE IN MUCH BETTER SPIRITS AND HAS EVEN MADE JOKES. HIS DRAIN IS PATENT. PT APPEARS IN NO ACUTE DISTRESS. WILL CONTINUE TO MONITOR.
[2018-09-19 05:48] LABS: BASOPHILS ABSOLUTE AUTO 0.04 K/mm3 (0.00-0.23); BASOPHILS PERCENT AUTO 0 % (0-2); EOSINOPHILS ABSOLUTE AUTO 0.04 K/mm3 (0.00-0.68); EOSINOPHILS PERCENT AUTO 0 % (0-6); Hematocrit 27.6 % (37.0-53.0); Hemoglobin 7.9 g/dL (13.5-17.5); IMMATURE GRAN ABSOLUTE AUTO 0.28 K/mm3 (0.00-0.10); IMMATURE GRAN PERCENT AUTO 3 % (0-1); LYMPHOCYTES ABSOLUTE AUTO 0.88 K/mm3 (0.84-5.20); LYMPHOCYTES PERCENT AUTO 9 % (21-46); MONOCYTES ABSOLUTE AUTO 1.09 K/mm3 (0.16-1.47); MONOCYTES PERCENT AUTO 11 % (4-13); Mean Corpuscular HGB 23.1 pg (26.0-34.0); Mean Corpuscular HGB Conc 28.6 g/dL (31.5-36.5); Mean Corpuscular Volume 81 fL (80-100); Mean Platelet Volume 11.3 fL (9.1-12.4); NEUTROPHILS ABSOLUTE AUTO 7.39 K/mm3 (1.96-9.15); NEUTROPHILS PERCENT AUTO 76 % (41-73); Platelet Count 432 K/mm3 (150-400); RDW Coefficient Variation 16.3 % (11.7-14.2); RDW Standard Deviation 47.8 fL (35.1-46.3); Red Blood Cell Count 3.42 M/mm3 (4.30-5.90); White Blood Cell Count 9.72 K/mm3 (4.00-11.30)
[2018-09-19 06:13] LABS: Albumin, Blood 1.6 g/dL (3.4-5.0); Anion Gap 8 mmol/L (6-16); Blood Urea Nitrogen 7 mg/dL (8-24); Bun/Creatinine Ratio 6.1 (12.0-20.0); CO2, Blood 25 mmol/L (21-32); Calcium, Blood 7.8 mg/dL (8.5-10.1); Chloride, Blood 116 mmol/L (98-108); Creatinine, Blood 1.15 mg/dL (0.60-1.20); Glomerular Filtration Rate >60 (60-); Glucose, Blood 98 mg/dL (70-99); Phosphorus, Blood 2.8 mg/dL (2.5-4.9); Potassium, Blood 3.7 mmol/L (3.5-5.5); Sodium, Blood 149 mmol/L (136-145)
--- NOTE | 2018-09-19 14:47 | NUR ---
Permission to access Patient gave this student nurse permission to access chart.
--- NOTE | 2018-09-19 14:50 | NUR ---
PT REPORTS DYSPNEA W/EXERTION. AUDIBLE WHEEZES NOTED. REQUESTED PRN BREATHING TREATMENT AND SAT PT UPRIGHT IN BED.
--- NOTE | 2018-09-19 19:56 | NUR ---
SHIFT SUMMARY: HE IS A&OX3. CONFUSED AT TIMES, KEVAN WHEN WAKING. VERBILIZED FEELING "WORN OUT" AND "JUST DONE". HE DECLINED DINNER. THIS RN OFFERED A "CHOCOLATE SHAKE" INSTEAD, HE AGREED TO DRINK THE GLUCERNA PROVIDED. TRANSPARENT DRESSING CHANGED ON PIG TAIL DRAIN THE OTHER DRESSING WAS PEELING AWAY. DRAIN IS PATENT AND DRAINING A MILKY YELLOW LIQUID. HE IS A 1 ASSIST W/FWW & GB. BED IN LOWEST POSITION WITH ALARM ON. CALL LIGHT IN REACH, PT IS ABLE TO MAKE NEEDS KNOWN.
--- NOTE | 2018-09-19 22:45 | NUR ---
AT APPROX 1942 I WAS IN THIS PATIENTS ROOM WHEN HE VOICED HIS DISSATISFACTION WITH THE CARE HE WAS RECIEVING. PT STATED HE "HAS SEEN NO IMPROVEMENT". PT WAS VERY UPSET ABOUT HAVING A NUMBER OF EPISODES OF DIARRHEA THIS DAY AND WAS THREATENING TO LEAVE AMA. HIS FRIEND MR. VÁSQUEZ WAS IN ROOM WITH HIM AND PATIENTS WAS PLANNING TO HAVE HIM DRIVE HIM HOME. DR. AMARAL CAME INTO THE ROOM AND TALKED WIHT PT. HE WILL PUT IN RX TO HELP WITH DIARRHEA. PT IS PLEASED WITH THIS. STATES HE WILL STAY UNTIL THE MORNING AT LEAST AND SEE HOW THINGS GO.
--- NOTE | 2018-09-20 06:28 | NUR ---
NOC SHIFT SUMMARY THIS PT WAS VERY FRUSTRATED AND AGRY EARLIER IN THE EVENING WHEN I BEGAN MY SHIFT. HE WAS VOICIG HIS DESCISION TO LEAVE AMA WHEN DR. AMARAL CAME IN AND SPOKE WITH HIM. CRISTIN ORDERED MEDICATOIN TO HELP RELIEVE DIARRHEA, PT IS PLEASED WITH THIS AND DECIDED TO STAY. HE HAS BEEN VERY POLITE AND COMPLIANT WITH CARE SINCE THEN. PT HAS HAS EPISODES OF DIARRHEA THROUGH THE NIGHT BUT NONE IN THE LAST FEW HOURS. HE IS CURRENLY SLEEPING RESTFULLY. APPEARS IN NO ACUTE DISTRESS. WILL CONTINUE TO MONITOR.
[2018-09-20 10:29] LABS: Anion Gap 7 mmol/L (6-16); Blood Urea Nitrogen 7 mg/dL (8-24); Bun/Creatinine Ratio 6.2 (12.0-20.0); CO2, Blood 25 mmol/L (21-32); Calcium, Blood 7.9 mg/dL (8.5-10.1); Chloride, Blood 115 mmol/L (98-108); Creatinine, Blood 1.12 mg/dL (0.60-1.20); Glomerular Filtration Rate >60 (60-); Glucose, Blood 115 mg/dL (70-99); Potassium, Blood 3.7 mmol/L (3.5-5.5); Sodium, Blood 147 mmol/L (136-145)
--- NOTE | 2018-09-20 17:30 | NUR ---
SHIFT SUMMARY PT A&OX4. CALM AND COOPERATIVE WITH CARE. [place]. PT RESTING IN BED DURING SHIFT, UP IN CHAIR FOR MEALS. PT APPEARS TO BE SLEEPING INTERMITTENTLY DURING SHIFT. PT SOB WITH EXERTION, >90% ON RA. PT DENIES PAIN AND N/V DURING SHIFT. PT RECEIVING IV ANTIBITOICS AND IRON SUPPLEMENTS. PT RECEIVING PO VANCO. PT STARTED ON METAMUCIL AND IMMODIUM TO RELEIVE DIARRHEA. PT HAS HAD 3 LOOSE BMS DURING SHIFT. PT 1 PERSON ASSIST WITH FWW TO BATHROOM. VSS. NO OTHE ACUTE CHANGES NOTED DURING SHIFT. WILL COTNINUE TO MONITOR UNTIL REPORT GIVEN TO ONCOMING RN.
--- NOTE | 2018-09-21 04:59 | NUR ---
SHIFT SUMMARY ADMITTED FOLLOWING ABDOMINAL SURGERY, THIS PT HAD A PERFORATED BOWEL. HE HAS A BILIARY DRAIN IN HIS OUTER LLQ DRAINING YELLOW/MILKY FLUID. HE IS A&O X3-4 (PERIODS OF CONFUSION, REPORTS FROM OTHER SHIFTS SAY HALLUCINATIONS). HE WAS ORIGINALLY HOME, THEN PLACED AT [facility], THEY SENT HIM HERE AND HE WILL DC BACK TO THERE FOR REHAB. HIS ELISABETH AREA IS RED AND EXCORIATED, BARRIER CREAM APPLIED, FREQUENT CHANGES. HE IS A 1 PERSON ASSIST TO BATHROOM BUT USES BRIEFS FOR ACCIDENTS. HE HAS A PATENT POWERGLIDE IN THE RUE. HE IS ON ZARELTO FOR DVT PREVENTION. HE HAS AN ABRUPT MANNER BUT CAN BE WON OVER WITH PATIENCE AND GENTLENESS. ZOSYN IV ANTIBIOTICS, IMMODIUM Q4 AND METAMUCIL FOR DIARRHEA & TO BULK UP THE STOOL. CARDIAC DIET.
[2018-09-21 05:38] LABS: Anion Gap 7 mmol/L (6-16); Blood Urea Nitrogen 8 mg/dL (8-24); Bun/Creatinine Ratio 6.9 (12.0-20.0); CO2, Blood 25 mmol/L (21-32); Calcium, Blood 7.8 mg/dL (8.5-10.1); Chloride, Blood 116 mmol/L (98-108); Creatinine, Blood 1.16 mg/dL (0.60-1.20); Glomerular Filtration Rate >60 (60-); Glucose, Blood 93 mg/dL (70-99); Potassium, Blood 3.6 mmol/L (3.5-5.5); Sodium, Blood 148 mmol/L (136-145)
--- NOTE | 2018-09-21 17:55 | NUR ---
SUMMARY PT SITTING UP IN BED EATING HIS DINNER, PT HAS BEEN A ONE PERSON ASSIST UP TO THE BATHROOM MANY MANY TIMES TODAY, PT'S DRAIN CONT TO HAVE ONLY SMALL AMOUNT OF MILKY COLORED FLUID, VSS, NO ACUTE CHANGES, WILL CONT TO MONITOR
[2018-09-22 05:40] LABS: Bun/Creatinine Ratio 6.3 (12.0-20.0); Creatinine, Blood 1.26 mg/dL (0.60-1.20); Potassium, Blood 3.7 mmol/L (3.5-5.5)
--- NOTE | 2018-09-22 06:36 | NUR ---
SHIFT SUMMARY A/O C/O DIARRHEA X3. REYNOLD SUNG TO BA. REFUSED SCD'S. HE WAS ABLE TO DOZE ON AND OFF T/O NIGHT. DRAIN ON L SIDE DRAINING MILKY FLUID. CALL LIGHT IN REACH
--- NOTE | 2018-09-22 07:05 | NUR ---
ASSUMED CARE OF PT- BEDSIDE REPORT COMPLETE WITH NIGHT RN PARIS. PT AWAKE AND PARTICIPATED IN BEDSIDE REPORT. PT ALERT AND ORIENTED PER REPORT AND CALLS APPROPRIATELY. PT RECIEVED A DOSE OF IMODIUM PRIOR TO SHIFT CHANGE D/T EXPLOSIVE DIARHHEA PER REPORT FROM NIGHT RN.
--- NOTE | 2018-09-22 19:33 | NUR ---
SHIFT SUMMARY- PT CHOKED ON HIS V8 JUICE, HE PUSHED HIS CALL LIGHT FOR PAIN MEDS, WHEN STAFF ARRIVED HE WAS VOMITING RED SPUTUM AND COUGHING A WET COUGH. CALLED DR MIXON, RECIEVED ORDER FOR CHEST XRAY. PT O2 SATS STILL WNL. PT STILL ON ROOM AIR. BREATH SOUNDS AUDIBLY MORE WHEEZY. PT REMAINED SITTING UPRIGHT FOR 30 MINUTES AFTER THE INCIDENT. PT REFUSED TO RAISE THE HOB AT THIS TIME, HE HAS A WET COUGH, SOUNDS LIKE HE IS COUGHING UP SOMETHING BUT NONE HAS BEEN VISUALIZED. PT ALERT AND ORIENTED, CALL LIGHT IN REACH, BED ALARM SET FOR SAFETY. BEDSIDE REPORT COMPLETE WITH NIGHT SIDDHARTHA TOLEDO.
[2018-09-23 04:41] LABS: Hematocrit 26.7 % (37.0-53.0); Hemoglobin 7.6 g/dL (13.5-17.5); Mean Corpuscular HGB Conc 28.5 g/dL (31.5-36.5); Mean Platelet Volume 11.5 fL (9.1-12.4); NRBC ABSOLUTE 0.02 K/mm3 (0.00-0.02); NRBC Auto 0.2 /100 WBC (0.0-0.2); Platelet Count 335 K/mm3 (150-400); RDW Coefficient Variation 18.8 % (11.7-14.2); Red Blood Cell Count 3.17 M/mm3 (4.30-5.90); White Blood Cell Count 9.61 K/mm3 (4.00-11.30)
[2018-09-23 04:43] LABS: Mean Corpuscular Volume 84 fL (80-100)
[2018-09-23 04:57] LABS: Bun/Creatinine Ratio 5.6 (12.0-20.0); Calcium, Blood 7.9 mg/dL (8.5-10.1); Creatinine, Blood 1.25 mg/dL (0.60-1.20); Potassium, Blood 3.6 mmol/L (3.5-5.5)
--- NOTE | 2018-09-23 05:53 | NUR ---
SHIFT SUMMARY PT STILL HAVING MULTIPLE LOOSE STOOLS. STOOL SAMPLE OF 09/23 C DIFF NEG WELL. GIVEN IMODIUM PER EMAR. SBA C WALKER TO BA CALLING APPROPRIATELY. HE WAS ABLE TO SLEEP ON AND OFF T/O NOC. DRAIN STILL MILKY LIGHT YELLOW COLOR.
--- NOTE | 2018-09-23 09:46 | NUR ---
DR MIXON REQUESTED RN TO CALL DR OTTO FOR PLAN UPDATE. PER THE OFFICE DR OTTO OUT OF THE OFFICE UNTIL WEDNESDAY.
--- NOTE | 2018-09-23 09:52 | NUR ---
CALLED A CONSULT TO DR QUINTERO ATTHE REQUEST OF DR MIXON; FOR SURGICAL FOLLOW UP ON THIS PT.
--- NOTE | 2018-09-23 17:12 | NUR ---
PT SLEEPING AND HAD A URINE ACCIDENT, ALL LINNENS CHANGED DRESSING CHANGED FOR THE DRAIN IT WAS COMING OFF, STAT LOC STILL IN PLACE. PT CHOSE TO GO BACK TO BED AFTER THIS.
--- NOTE | 2018-09-23 19:13 | NUR ---
SHIFT SUMMARY- PT HAS HAD NO ACUTE CHANGES T/O THE SHIFT, UNTIL THIS EVENING. PT WAS SLEEPING AND HAD A SUDDEN ONSET OF SOB. RAISED THE HOB AND PLACED THE PT ON 2L O2 NC. CALLED RT FOR BREATHING Tx. STAYED WITH THE PT UNTIL SHIFT CHANGE, RESP RATE HAD SLOWED TO THE 20'S PT VITALS STABLE O2 SATS 100% ON 2L. PASSED OFF IN BEDSIDE REPORT TO NIGHT SIDDHARTHA GIORDANO. PT ALERT AND ORIENTED SITTING UP IN BED CALL LIGHT IN REACH, CALLS APPROPRIATELY.
--- NOTE | 2018-09-24 05:10 | NUR ---
SHIFT SUMMARY PT IRRITABLE AT SHIFT CHANGE, HAVING SOME SHORTNESS OF BREATH. OXYGEN ON PER NC. SLEPT WELL AND IS FEELING BETTER THIS AM. OXYGEN REMAINS ON PER NC. PT HAS BEEN INCONTINENT DURING THE NIGHT, BUT RINGS WHEN HE'S WET. POWERGLIDE DRESSING CHANGE DONE PER STERILE TECHNIQUE. WILL CONTINUE TO MONITOR.
--- NOTE | 2018-09-24 09:55 | NUR ---
PATIENT DID NOT EAT BREAKFAST THIS SHIFT DUE TO BREAKFAST BEING HELD FOR A PROCEDUER THIS SHIFT.
--- NOTE | 2018-09-24 19:25 | NUR ---
PT A/OX3, PLEASANT AND COOPERATIVE, THE PT IS UP WITH ASSIST TO THE BATHROOM AND TO THE CHAIR, THE PT WAS INCONTNENT AT TIMES WITH URINE, A CONDOM CATH WAS TRIED X2, BUT WOULD NOT STAY INPLACE, THE PT APPEARED TO BE BREATHING EASILY ON RA, THE PT DENIED ANY PAIN T/O THE DAY, CALL LIGHT IN REACH WILL CONTINUE TO MONITOR AND ASSESS FRO CHANGES
--- NOTE | 2018-09-25 04:50 | NUR ---
SHIFT SUMMARY PT HAS SLEPT FAIR, WOKE UP INCONTINENT X1. BEDDING AND GOWN CHANGED. PT MORE ALERT TONIGHT AND IS RINGING FOR ASSISTANCE TO THE BATHROOM. HAS ALSO BEEN USING THE URINAL AT BEDSIDE. PT OFFERS NO C/O'S. WILL CONTINUE TO MONITOR.
--- NOTE | 2018-09-25 10:15 | NUR ---
CONDOM CATH APPLIED CONDOM CATH , USED BENZONATE TINCTURE AND A STAT LOCK TO HELP SECURE THE CATHETER INPLACE, THE PT TOLERATED THE PROCEDURE WELL
--- NOTE | 2018-09-25 10:17 | NUR ---
RIGHT ANKLE WOUND CLEANESD AND CHANGED THE DRESSING OVER THE PTS RIGHT ANKLE WOUND, THE PT TOLERATED THE PROCEDURE WELL
[2018-09-26 04:48] LABS: Hematocrit 26.8 % (37.0-53.0); Hemoglobin 7.5 g/dL (13.5-17.5); Mean Corpuscular Volume 86 fL (80-100); Mean Platelet Volume 12.1 fL (9.1-12.4); Platelet Count 281 K/mm3 (150-400); RDW Coefficient Variation 22.7 % (11.7-14.2); RDW Standard Deviation 50.9 fL (35.1-46.3); Red Blood Cell Count 3.12 M/mm3 (4.30-5.90); White Blood Cell Count 8.78 K/mm3 (4.00-11.30)
[2018-09-26 05:17] LABS: Anion Gap 8 mmol/L (6-16); Blood Urea Nitrogen 7 mg/dL (8-24); Bun/Creatinine Ratio 5.9 (12.0-20.0); CO2, Blood 26 mmol/L (21-32); Chloride, Blood 112 mmol/L (98-108); Creatinine, Blood 1.18 mg/dL (0.60-1.20); Glomerular Filtration Rate >60 (60-); Glucose, Blood 99 mg/dL (70-99); Sodium, Blood 146 mmol/L (136-145)
--- NOTE | 2018-09-26 05:23 | NUR ---
SHIFT SUMMARY PT UP TO BATHROOM DURING NIGHT WITH SBA AND WALKER. PT INCONTINENT OF BOWEL AND BLADDER DURING THE NIGHT. PT ALERT AND ORIENTED. OFFERS NO C/O'S. NO ACUTE EVENTS DURING THE NIGHT, WILL CONTINUE TO MONITOR.
--- NOTE | 2018-09-26 16:49 | NUR ---
SHIFT SUMMARY PT A&OX3. CALM AND COOPERATIVE WITH CARE. PT RESTING IN BED DURING SHIFT, UP IN CHAIR FOR MEALS. PT SOB WITH EXERTION, >90% ON RA. BREATHING TREATMENT PRN. PT DENIES PAIN AND N/V DURING SHIFT. PT RECEIVING IV ANTIBITOICS. ABD DRAIN PATENT. PT RECEIVING PO VANCO. VSS. NO OTHER ACUTE CHANGES NOTED DURING SHIFT. WILL CONTINUE TO MONITOR UNTIL REPORT GIVEN TO ONCOMING RN.
--- NOTE | 2018-09-27 05:26 | NUR ---
SHIFT SUMMARY PT HAD NO COMPLAINTS DURING SHIFT. PT HAS SLEPT FOR MOST OF SHIFT. NO COMPLAINTS NOTED. PT CURRENTLY SLEEPING AND BREATHING EASY. CALL LIGHT IN REACH AND BED IN LOW POSITION.
--- NOTE | 2018-09-27 16:55 | NUR ---
Mr. Robbins appeared to enjoy conversation and theraputic listening. He told me he was raised Mormon, but stopped believing in God when his son . He spoke about flaws in all major world religions and was adamant in his denial of God. Obviously, he is angry. He did not want to talk to me about his illness or prognosis. I will remain available.
--- NOTE | 2018-09-27 17:07 | NUR ---
SHIFT SUMMARY PT UP IN CHAIR FOR ALL MEALS. HAS AN ABSCESS WITH A DRAIN TUBE/BAG ATTACHED IN THE LLQ. I REQUESTED INFORMATION ON PT'S DRESSING FROM OR STAFF. OR STAFF CAME AND VIEWED THE PT'S DRESSING (I WAS UNFAMILIAR WITH THE DRESSING TYPE), THEY STATED I SHOULD HOLD ANY DRESSING CHANGES UNTIL SURGEON CONTACTED BY THEM. THEY CONTACTED DR. QUEVEDO TO VERIFY. DR. QUEVEDO REQUESTS THAT WE NOT CHANGE THE DRESSING. HE WILL HANDLE THAT PART OF PT CARE. PT WILL NOT DC UNTIL THE DRAIN TUBE IS REMOVED. PT RECEIVES ORAL VANCO. PT HAS A POWERGLIDE IN THE RUE THAT DOES NOT DRAW. HE IS A 1 PERSON ASSIST W/FWW. HE IS A&O X4. HE DOES HAVE A SORE ON THE RT SMALL COVERED BY MEPILEX. HE IS ACHS, BUT HAS NOT NEEDED COVERAGE THIS SHIFT. PT IS A DNR. RECEIVES IV ANTIBIOTICS. ON ROOM AIR.
[2018-09-28 05:07] LABS: BASOPHILS ABSOLUTE AUTO 0.04 K/mm3 (0.00-0.23); BASOPHILS PERCENT AUTO 1 % (0-2); EOSINOPHILS ABSOLUTE AUTO 0.06 K/mm3 (0.00-0.68); EOSINOPHILS PERCENT AUTO 1 % (0-6); Hematocrit 26.8 % (37.0-53.0); Hemoglobin 7.6 g/dL (13.5-17.5); IMMATURE GRAN ABSOLUTE AUTO 0.04 K/mm3 (0.00-0.10); IMMATURE GRAN PERCENT AUTO 1 % (0-1); LYMPHOCYTES PERCENT AUTO 11 % (21-46); MONOCYTES ABSOLUTE AUTO 1.09 K/mm3 (0.16-1.47); MONOCYTES PERCENT AUTO 13 % (4-13); Mean Corpuscular HGB 25.2 pg (26.0-34.0); Mean Corpuscular HGB Conc 28.4 g/dL (31.5-36.5); Mean Platelet Volume 12.2 fL (9.1-12.4); NEUTROPHILS ABSOLUTE AUTO 6.32 K/mm3 (1.96-9.15); NEUTROPHILS PERCENT AUTO 75 % (41-73); Platelet Count 265 K/mm3 (150-400); RDW Coefficient Variation 24.6 % (11.7-14.2); RDW Standard Deviation 77.1 fL (35.1-46.3); Red Blood Cell Count 3.01 M/mm3 (4.30-5.90); White Blood Cell Count 8.45 K/mm3 (4.00-11.30)
[2018-09-28 05:12] LABS: Mean Corpuscular Volume 89 fL (80-100)
[2018-09-28 05:44] LABS: Albumin, Blood 1.7 g/dL (3.4-5.0); Albumin/Globulin Ratio 0.4 (0.8-1.8); Bilirubin, Total 0.6 mg/dL (0.1-1.0); Bun/Creatinine Ratio 6.4 (12.0-20.0); Calcium, Blood 8.1 mg/dL (8.5-10.1); Creatinine, Blood 1.25 mg/dL (0.60-1.20); Globulin, Blood 4.1 g/dL (2.2-4.0); Potassium, Blood 4.3 mmol/L (3.5-5.5); Total Protein, Blood 5.8 g/dL (6.4-8.2)
--- NOTE | 2018-09-28 06:05 | NUR ---
SHIFT SUMMARY PT A/O MCGRATH SBA TO EBONIE SUNG. STILL HAVING MULTIPLE LOOSE STOOL EPISODES BEING INCONT OF STOOL. L DRAIN MILKY YELLOW COLOR. ABLE TO SLEEP ON AND OFF T/O NOC. REFUSED SCD'S. CALL LIGHT IN REACH
[2018-09-28 06:10] LABS: Percent Saturation 22.5 % (20.0-50.0)
--- NOTE | 2018-09-28 14:59 | NUR ---
PATIENT HAS REFUSED HIS METAMUCIL THIS SHIFT HAS HIS DIARRHEA IS STILL AN ISSUE. HE ASKED FOR AND WAS GIVEN IMMODIUM .
--- NOTE | 2018-09-28 17:53 | NUR ---
PATIENT CONTINUES TO HAVE DARK LOOSE DIARRHEA THIS SHIFT. HE IS ABLE TO AMBULATE WITH FFW TO RESTROOM WITH SBA. NO OTHER CHANGES.
--- NOTE | 2018-09-29 02:56 | NUR ---
CALLED DR MIXON REGARDING PT'S HGB ON 09/28/18 OF 7.6 AND NO AM LAB TO RECHECK, NO NEW ORDERS AT THIS TIME BUT DR MIXON DID SAY HE WOULD MOST LIKELY ORDER FOR EITHER 09/30/18 OR 10/01/18 IF THE DAY HOSPITALIST DID NOT ALREADY ADDRESS IT TODAY OR TOMORROW.
--- NOTE | 2018-09-29 07:40 | NUR ---
Rn summary: Patient is alert and oriented and uses the call light appropriately. Pt had one incontinent loose stool this shift. Pt was able to make it to the BR the rest of the time. Pt tolerated the CT contrast and it was done this am at 0600. Pt has a drainage tube to left abdomen, yellow puss like drainage. It was not emptied. Pt with crackles rt lung base. Report to day shift nurse.
--- NOTE | 2018-09-29 19:25 | NUR ---
SHIFT SUMMARY EBONIE HAD A GOOD SHIFT. DENIED PAIN. SOMEWHAT SAD AT THE END OF THE SHIFT. HE HAD 7-8 LOOSE BROWN BMS THIS SHIFT. FAIRLY GOOD APPETITE. CBGS NOT REQUIRING INSULIN. DR HAYES CAME AND LOOKED AT DRAIN , STATES THAT IT IS DOING WELL BUT WE WILL KEEP IT IN FOR A BIT LONGER. SBA TO BR, CALLS APPROPRIATELY. PRN IMMODIUM GIVEN. POWERGLIDE SL. TOOK PILLS PRESCRIBED
[2018-09-30 05:40] LABS: BASOPHILS ABSOLUTE AUTO 0.05 K/mm3 (0.00-0.23); BASOPHILS PERCENT AUTO 1 % (0-2); EOSINOPHILS ABSOLUTE AUTO 0.07 K/mm3 (0.00-0.68); EOSINOPHILS PERCENT AUTO 1 % (0-6); Hematocrit 25.9 % (37.0-53.0); Hemoglobin 7.4 g/dL (13.5-17.5); IMMATURE GRAN ABSOLUTE AUTO 0.02 K/mm3 (0.00-0.10); IMMATURE GRAN PERCENT AUTO 0 % (0-1); LYMPHOCYTES ABSOLUTE AUTO 0.79 K/mm3 (0.84-5.20); LYMPHOCYTES PERCENT AUTO 13 % (21-46); MONOCYTES ABSOLUTE AUTO 0.91 K/mm3 (0.16-1.47); MONOCYTES PERCENT AUTO 15 % (4-13); Mean Corpuscular HGB 25.6 pg (26.0-34.0); Mean Corpuscular HGB Conc 28.6 g/dL (31.5-36.5); Mean Corpuscular Volume 90 fL (80-100); Mean Platelet Volume 12.3 fL (9.1-12.4); NEUTROPHILS PERCENT AUTO 70 % (41-73); Platelet Count 247 K/mm3 (150-400); RDW Standard Deviation 80.4 fL (35.1-46.3); Red Blood Cell Count 2.89 M/mm3 (4.30-5.90); White Blood Cell Count 6.14 K/mm3 (4.00-11.30)
[2018-09-30 06:24] LABS: Alanine Aminotransfer (ALT/SGP 13 U/L (12-78); Albumin, Blood 1.8 g/dL (3.4-5.0); Albumin/Globulin Ratio 0.4 (0.8-1.8); Alk Phos 139 U/L (50-136); Anion Gap 8 mmol/L (6-16); Aspartate Aminotrans (AST/SGOT 19 U/L (12-37); Bilirubin, Total 0.5 mg/dL (0.1-1.0); Blood Urea Nitrogen 8 mg/dL (8-24); Bun/Creatinine Ratio 6.8 (12.0-20.0); CO2, Blood 27 mmol/L (21-32); Chloride, Blood 109 mmol/L (98-108); Creatinine, Blood 1.18 mg/dL (0.60-1.20); Glomerular Filtration Rate >60 (60-); Glucose, Blood 74 mg/dL (70-99); Magnesium, Blood 1.5 mg/dL (1.6-2.4); Sodium, Blood 144 mmol/L (136-145); Total Protein, Blood 5.8 g/dL (6.4-8.2)
--- NOTE | 2018-09-30 06:30 | NUR ---
SHIFT SUMMARY PT IS AN 82 Y/O MALE, ADMITTED FOR DIARRHEA AND AN ABD ABSCESS. HE IS A&O X 4, AND ABLE TO AMBULATE 1PA TO THE BATHROOM. THE PT DID REPORT FEELING DEPRESSED DURING THE NIGHT, SAYING THAT HE'S "TIRED OF ALL OF THIS". THE PT ASKED QUESTIONS ABOUT HIS PLAN OF CARE, WHICH WERE EXPLAINED BY THIS RN, HE SAID THAT HE DIDN'T KNOW WHAT WAS GOING ON, OR WHAT WE WERE TRYING TO DO. VITAL SIGNS REMAINED STABLE DURING THE NIGHT. PT DENIED ANY ACUTE PAIN, NAUSEA OR SOB. HE IS STILL HAVING DIARRHEA, THOUGH HAS REPORTED THAT IT FEELS LIKE IT IS "FIRMING UP". NO OTHER ACUTE CHANGES IN PT CONDITION NOTED. WILL CONTINUE TO MONITOR AND TREAT PER EMAR.
--- NOTE | 2018-09-30 15:54 | NUR ---
PATIENT ASKING ABOUT HIS WALLET AND HIS KEYS DUE TO IT BEING LEFT AT [facility]. PATIENT VERY ANXIOUS ABOUT HIS WALLET, HE IS TO GO HOME TOMORROW. PATIENT NEEDS THOSE KEYS IN ORDER TO GET INTO HIS HOUSE IF HE IS TO BE DISCHARGED TOMORROW. KRISTIAN RAMIREZ HAS CALLED [facility] TO LET THEM KNOW OF THIS CONCERN. THEY ARE TO BRING THE PATIENTS WALLET AND KEYS OVER TO THE HOSPITAL FOR PATIENT. AWAITING NEWS ON WHETHER THEY CAN BRING THE PATIENT HIS POSSESSIONS PRIOR TO HIS DISCHARGE.
--- NOTE | 2018-09-30 16:23 | NUR ---
PATIENT IS VERY PLEASANT ABOUT CONCERNS AT THIS TIME. WILL CONTINUE TO MONITOR FOR ANY CHANGES AND I HAVE WORKED WITH HIM ABOUT HIS POSSESSIONS. HE STATES HE IS DOING BETTER JUST KNOWING THAT THEY HAVE BEEN FOUND.
--- NOTE | 2018-09-30 16:36 | NUR ---
SPOKE WITH A NURSE AT [facility] THAT STATES SHE WILL CALL BACK ABOUT THE PATIENTS BELONGINGS. SHE IS CALLING THE SILO TENDER AT THIS TIME TO SEE ABOUT GETTING SOMEONE TO BRING THE PATIENTS BELONGINGS OVER.
--- NOTE | 2018-09-30 16:43 | NUR ---
Pau from [facility] stated that the social service agency director from [facility] is going to bring the patients wallet and keys to the patient anytime between 7-8 this evening.
--- NOTE | 2018-09-30 17:06 | NUR ---
SHIFT SUMMARY PATIENT IS MILDLY IRRITABLE RELATED TO HIS CONCERN ABOUT HIS WALLET AND KEYS. THIS HAS BEEN DEALT WITH AND THE PATIENT IS POTENTIALLY DISCHARGING TODAY. IT HAS BEEN OKAYED BY DR. OTTO FOR THE PATIENT TO GO HOME WITH THE DRAIN AND HIS POST OP APPOINTMENT IS ALREADY SCHEDULED FOR 10/04/18 AT 1030. THIS NEEDS TO BE PLACED IN HIS DISCHARGE PACKET.
--- NOTE | 2018-10-01 04:35 | NUR ---
SHIFT SUMMARY PT SITTING TO EOB, AT START OF SHIFT. FINISHED WITH DINNER. VISITOR LEFT FOR THE NIGHT. PER SHIFT REPORT, PT ANXIOUS ABOUT KEYS AND WALLET. [address] SS WAS HERE TO BRING PT HIS WALLET. SS REPORTED NO KEYS NOTICED OR FOUND. PT REPORTED THAT HE HAS "BEEN HERE A MONTH", AND HAD COME IN TO REHAB WITH HIS KEYS AND WALLET IN HIS POCKETS. PT ADMITTED FOR C-DIFF, AFTER BOWEL RESECTION AND FINDING ABSCESS BETWEEN BOWEL LOOPS. DRAIN PLACED TO L SIDE, PATENT. DRAINING SM [facility] [place] COLORED FLUID IN BAG. PT TO BE SENT HOME WITH DRAIN AND FOLLOW UP WITH POST OP APPOINTMENT. PT BOTH CONTINENT AND INCONTINENT OF BOWEL AND BLADDER. UP TO BSC FOR SEVERAL SOFT STOOLS THIS SHIFT. CALL LT IN REACH. ABLE TO MAKE NEEDS KNOWN.
[2018-10-01] MEDS ORDERED: LEVFLO500 PO (10:54)
[2018-10-01] MEDS ORDERED: Banatrol1 EACH PO (10:54)
--- NOTE | 2018-10-01 17:40 | NUR ---
DISCHARGE SUMMARY ALL MEDICATIONS TALKED THROUGH WITH THE PATIENT. POWERGLIDE REMOVED. NO ACUTE CONCERNS AT TIME OF DISCHARGE. PATIENT WHEELED DOWN BY CAMELID FIBER SORTER.
--- NOTE | 2018-10-01 17:47 | NUR ---
nurse called to have me reviw resources for patient in community. Repeat conversation as Darnell had with patient he needs help but kept telling me he would not put up with anything. Pt is repetaive he is a high fall risk. His freiend came to pick him up he describes the house as feel of stuff and a mess. pt has family but sounds like minimal contact. will update social service and possibly aps. pt states harder to cook he does not clean and minimal activity due to fear of falling.
--- NOTE | 2018-10-01 17:50 | NUR ---
Senior rescource book given advised I will call them wednesday. we had a blunt discussion of asking for help and then picking every plan apart is unacceptable. He accetpted a conversation about not wanting to face that he cannot live alone and needs to make a plan. Suggested he contact his family for a discussion.
== END 2018-10-01 12:32 | disposition home or self-care (01) | DRG 862 ==
LOC: ER 16:24 → PCU 16:25 → MEDS 09-15 16:58 → PCU 09-15 16:59 → MEDS 09-17 01:05 → ENPENDDIS 10-01 11:30 → MEDS 10-01 12:32
PROVIDERS: Emergency Medicine; Internal Medicine; ADMIT Family Medicine
PROC: 0D9W30Z Drainage of Peritoneum with Drainage Device, Percutaneous Approach (ICD-10-PCS; principal; 2018-09-15)
DX: T81.43XA Infection following a procedure, organ and space surgical site, initial encounter (principal); A41.9 Sepsis, unspecified organism; R65.20 Severe sepsis without septic shock; E87.0 Hyperosmolality and hypernatremia; Z87.891 Personal history of nicotine dependence; Z90.49 Acquired absence of other specified parts of digestive tract; J44.9 Chronic obstructive pulmonary disease, unspecified; I48.2 Chronic atrial fibrillation; N18.3 Chronic kidney disease, stage 3 (moderate); E11.22 Type 2 diabetes mellitus with diabetic chronic kidney disease; N40.0 Benign prostatic hyperplasia without lower urinary tract symptoms; K21.9 Gastro-esophageal reflux disease without esophagitis; Z66 Do not resuscitate; E87.6 Hypokalemia; D69.6 Thrombocytopenia, unspecified; B96.1 Klebsiella pneumoniae [K. pneumoniae] as the cause of diseases classified elsewhere; I12.9 Hypertensive chronic kidney disease with stage 1 through stage 4 chronic kidney disease, or unspecified chronic kidney disease
CPT/HCPCS: 36415; 49405; 71045; 74176; 74177; 80048; 80053; 80069; 82607; 82728; 82746; 82947; 83540; 83550; 83605; 83735; 85025; 85027; 85610; 85730; 87040; 87070; 87075; 87077; 87186; 87205; 87493; 87507; 88108; 94640; 94664; 94667; 94760; 96361; 96365; 96367; 96375; 96376; 97162; 97165; 97530; 98960; 99285-25; C1751; G0378; J0696; J1815; J2543; J2916; J3370; J7030; J7050; J7120; Q9967

== ENCOUNTER 2018-10-06 15:52 | Emergency (ER) | payer MEDICARE ==
[~2018-10-06] VITALS: Ht 172.7 cm; Wt 77.1 kg
[~2018-10-06 15:52] MED LIST changes: +ACETAMINOPHEN650 MG PO; +ACIDOPHILUS1 EAC2 PO; +Banatrol1 EACH PO; +DULERA 200 MCG/13 GM INH; +MYRBETRIQ25 MG PO; +SACC250C; +VANC125 PO
[2018-10-06] MEDS ORDERED: HYDROCORTISON28.4 G1 TOP (16:57)
== END 2018-10-06 17:25 | disposition home or self-care (01) ==
LOC: ER 15:52
DX: S61.412A Laceration without foreign body of left hand, initial encounter (principal); I12.9 Hypertensive chronic kidney disease with stage 1 through stage 4 chronic kidney disease, or unspecified chronic kidney disease; E11.22 Type 2 diabetes mellitus with diabetic chronic kidney disease; N18.9 Chronic kidney disease, unspecified; D63.1 Anemia in chronic kidney disease; J44.9 Chronic obstructive pulmonary disease, unspecified; E78.5 Hyperlipidemia, unspecified; I48.91 Unspecified atrial fibrillation; Z86.718 Personal history of other venous thrombosis and embolism; Z87.891 Personal history of nicotine dependence; W18.30XA Fall on same level, unspecified, initial encounter
CPT/HCPCS: 99283

== ENCOUNTER 2018-10-11 13:47 | Inpatient (IN) | payer MEDICARE ==
[~2018-10-11] VITALS: Ht 172.7 cm; Wt 82.2 kg
[~2018-10-11 13:47] MED LIST changes: -ACETAMINOPHEN650 MG PO; -ACIDOPHILUS1 EAC2 PO; -ALBU3IS NEB; -Banatrol1 EACH PO; -DULERA 200 MCG/13 GM INH; -FAMO20 PO; -Ferrex 150 For1 EACH PO; +HYDROCORTISON28.4 G1 TOP; -METO50ER PO; -MYRBETRIQ25 MG PO; -TAMS.4ER PO
[2018-10-11] MEDS ORDERED: **INCOMPLETE MED REC (16:50)
[2018-10-11] MEDS ORDERED: ACETAMINOPHEN650 MG PO (16:53)
[2018-10-11] MEDS ORDERED: ALBU3IS NEB (16:55)
[2018-10-11] MEDS ORDERED: ELIQUIS5 MG PO (16:56)
[2018-10-11] MEDS ORDERED: LEVFLO500 PO (17:01)
[2018-10-11] MEDS ORDERED: HYDROCORTISON28.4 G1 TOP (17:03)
[2018-10-11] MEDS ORDERED: Ferrex 150 For1 EACH PO (17:05)
[2018-10-11] MEDS ORDERED: FAMO20 PO (17:15)
[2018-10-11] MEDS ORDERED: METO50ER PO (17:16)
[2018-10-11] MEDS ORDERED: TAMS.4ER PO (17:17)
[2018-10-11] MEDS ORDERED: ACIDOPHILUS1 EAC2 PO (17:20)
[2018-10-11] MEDS ORDERED: Banatrol1 EACH PO (17:21)
[2018-10-11] MEDS ORDERED: DULERA 200 MCG/13 GM INH (17:22)
[2018-10-11] MEDS ORDERED: MYRBETRIQ25 MG PO (17:22)
--- NOTE | 2018-10-11 18:52 | NUR ---
Initial Visit: Palliative Care Consult for Advanced Care Planning. Spoke with Gian (ER JACKSPOOLER) and he requests to have discussion with Pt regarding in home caregivers. Pt is A&O and reports a tolerable 3/10 pain in his right big toe. He reports 2/7 anxiety and states anxiety is due to his decreased ability to care for himself. Engaged in therapeutic conversation about goals of care. Pt reports that he is struggling with careing for himself and is struggling with dressing and bathing himself. He reports scheduling someone to start cleaning his house tomorrow. Suggested to Pt he may consider the need for someone to help with his needs of ADL's including dressing and bathing. Pt is agreeable with this plan. Pt answers his phone and conversed for some time and this RN ended visit. Plan is to place social service consult for in home caregivers.
[2018-10-11 19:20] LABS: Source, Urine Clean Catch
[2018-10-11 19:23] LABS: Bilirubin, Urine Neg (Neg); Blood, Urine 4+ (Neg); Glucose Qualitative, Urine Neg (Neg); Ketones, Urine Neg (Neg); Leukocyte Esterase, Urine Neg (Neg); Nitrite, Urine Neg (Neg); Protein, Urine Neg (Neg); Specific Gravity, Urine 1.015 (1.003-1.022); Urobilinogen, Urine NORM (Normal)
[2018-10-11 19:28] LABS: Appearance, Urine Clear (Clear); Color, Urine Yellow (P-Yellow)
[2018-10-11 19:29] LABS: Bacteria Mod /hpf; Squamous Epithelial Cells Few /hpf (Few); White Blood Cells, Urine 0-2 /hpf (0-5)
[2018-10-11 19:56] LABS: Creatinine, Urine Random 78.8 mg/dL (27.00-270.00)
[2018-10-11 21:24] LABS: Albumin, Blood 2.1 g/dL (3.4-5.0); Anion Gap 10 mmol/L (6-16); Blood Urea Nitrogen 13 mg/dL (8-24); Bun/Creatinine Ratio 5.9 (12.0-20.0); CO2, Blood 25 mmol/L (21-32); Calcium, Blood 7.5 mg/dL (8.5-10.1); Chloride, Blood 108 mmol/L (98-108); Creatinine, Blood 2.22 mg/dL (0.60-1.20); Glomerular Filtration Rate 30 (60-); Glucose, Blood 132 mg/dL (70-99); Phosphorus, Blood 2.7 mg/dL (2.5-4.9); Sodium, Blood 143 mmol/L (136-145)
--- NOTE | 2018-10-11 21:52 | NUR ---
transfer report on 82 year old MAle being admitted with acute kidney injury. PT was recently hospitalized and he refused SNF on Dc per RN Keeley report. He has a abd drain for abscess and hx of recent cdiff colitis. Will place PT in contact enteric precations and collect GI panel and urine sample. Await admission.
[2018-10-11 23:16] LABS: Source, Urine Catheter
[2018-10-11 23:18] LABS: Bilirubin, Urine Neg (Neg); Blood, Urine 4+ (Neg); Glucose Qualitative, Urine Neg (Neg); Ketones, Urine Neg (Neg); Leukocyte Esterase, Urine 1+ (Neg); Nitrite, Urine Neg (Neg); Protein, Urine Neg (Neg); Specific Gravity, Urine 1.015 (1.003-1.022); Urobilinogen, Urine NORM (Normal)
[2018-10-11 23:23] LABS: Appearance, Urine Hazy (Clear); Color, Urine Yellow (P-Yellow)
[2018-10-11 23:24] LABS: Bacteria Many /hpf; Squamous Epithelial Cells Mod /hpf (Few)
[2018-10-11 23:25] LABS: Hyaline Casts 0-2 /lpf (0-2); Yeast/Fungi Urine Mod /hpf
--- NOTE | 2018-10-12 04:25 | NUR ---
82 year old MAle admitted through ER for acute kidney injury after having outpt labs come back was sent by . PT has DNR status. HX of recent cdiff and having diarrhea at home. had weakness, falls at home. up with assist several times to void and several stools. urine mixed with stool first BM second incontinent bm. ua sent for c & s. on oral vanco for cdiff. Hard of hearing, wears bilat hearing aides. Wound care bilat le open areas. refused to wear patti hose. will reapply extra large size. large are too tight. Continues on IVfluid for monika.
[2018-10-12 05:37] LABS: Hematocrit 24.3 % (37.0-53.0); Hemoglobin 7.1 g/dL (13.5-17.5); Mean Corpuscular HGB 25.3 pg (26.0-34.0); Mean Corpuscular HGB Conc 29.2 g/dL (31.5-36.5); Mean Corpuscular Volume 87 fL (80-100); Mean Platelet Volume 11.8 fL (9.1-12.4); Platelet Count 186 K/mm3 (150-400); RDW Coefficient Variation 22.7 % (11.7-14.2); RDW Standard Deviation 70.8 fL (35.1-46.3); Red Blood Cell Count 2.81 M/mm3 (4.30-5.90); White Blood Cell Count 4.89 K/mm3 (4.00-11.30)
[2018-10-12 05:57] LABS: Albumin/Globulin Ratio 0.5 (0.8-1.8); Bilirubin, Total 0.4 mg/dL (0.1-1.0); Calcium, Blood 7.1 mg/dL (8.5-10.1); Globulin, Blood 3.7 g/dL (2.2-4.0); Magnesium, Blood 1.5 mg/dL (1.6-2.4); Potassium, Blood 3.1 mmol/L (3.5-5.5); Total Protein, Blood 5.7 g/dL (6.4-8.2)
[2018-10-12 15:49] LABS: Hematocrit 25.8 % (37.0-53.0); Hemoglobin 7.6 g/dL (13.5-17.5); Mean Corpuscular HGB 25.9 pg (26.0-34.0); Mean Corpuscular HGB Conc 29.5 g/dL (31.5-36.5); Mean Corpuscular Volume 88 fL (80-100); Mean Platelet Volume 12.1 fL (9.1-12.4); Platelet Count 214 K/mm3 (150-400); RDW Coefficient Variation 22.6 % (11.7-14.2); RDW Standard Deviation 72.2 fL (35.1-46.3); Red Blood Cell Count 2.94 M/mm3 (4.30-5.90); White Blood Cell Count 6.21 K/mm3 (4.00-11.30)
--- NOTE | 2018-10-12 16:32 | NUR ---
SHIFT SUMMARY NO ACUTE CHANGES. PATIENT RESTED IN BED ALL DAY. WORKED WITH PT. DECLINED SITTING IN CHAIR. PIGTAIL DRAIN REMOVED FROM ABDOMEN. DENIES PAIN, NAUSEA, OR SHORTNESS OF BREATH. CALL LIGHT IN REACH, WILL CONTINUE TO MONITOR.
[2018-10-13 06:09] LABS: BASOPHILS ABSOLUTE AUTO 0.02 K/mm3 (0.00-0.23); BASOPHILS PERCENT AUTO 0 % (0-2); EOSINOPHILS ABSOLUTE AUTO 0.09 K/mm3 (0.00-0.68); EOSINOPHILS PERCENT AUTO 2 % (0-6); Hematocrit 25.7 % (37.0-53.0); Hemoglobin 7.6 g/dL (13.5-17.5); IMMATURE GRAN ABSOLUTE AUTO 0.01 K/mm3 (0.00-0.10); IMMATURE GRAN PERCENT AUTO 0 % (0-1); LYMPHOCYTES ABSOLUTE AUTO 0.58 K/mm3 (0.84-5.20); LYMPHOCYTES PERCENT AUTO 11 % (21-46); MONOCYTES ABSOLUTE AUTO 0.76 K/mm3 (0.16-1.47); MONOCYTES PERCENT AUTO 14 % (4-13); Mean Corpuscular HGB 25.7 pg (26.0-34.0); Mean Corpuscular HGB Conc 29.6 g/dL (31.5-36.5); Mean Corpuscular Volume 87 fL (80-100); Mean Platelet Volume 12.7 fL (9.1-12.4); NEUTROPHILS ABSOLUTE AUTO 4.01 K/mm3 (1.96-9.15); NEUTROPHILS PERCENT AUTO 73 % (41-73); Platelet Count 203 K/mm3 (150-400); RDW Coefficient Variation 22.6 % (11.7-14.2); RDW Standard Deviation 70.9 fL (35.1-46.3); Red Blood Cell Count 2.96 M/mm3 (4.30-5.90); White Blood Cell Count 5.47 K/mm3 (4.00-11.30)
[2018-10-13 06:32] LABS: Bun/Creatinine Ratio 6.7 (12.0-20.0); Calcium, Blood 7.7 mg/dL (8.5-10.1); Creatinine, Blood 1.8 mg/dL (0.60-1.20); Potassium, Blood 4.2 mmol/L (3.5-5.5)
--- NOTE | 2018-10-13 06:47 | NUR ---
SHIFT SUMMARY PT AWAKE ON/OFF T/O NIGHT. AOX4. VSS. DENIES SOB OR N/V. REPORTS 8/10 PAIN IN BLE (SHINS), MEDICATED 1X W/TYLENOL PER ORDERS & PT REPORTS IT HELPED W/PAIN. PT 1 ASSIST TO BSC, NO BM THIS SHIFT. CALL LIGHT IN REACH & PT USES IT APPROPRIATELY. I WILL CONT. TO MONITOR PT.
[2018-10-13] MEDS ORDERED: ALBU90OI61 INH (14:51)
[2018-10-13] MEDS ORDERED: FOLI1 PO (14:59)
[2018-10-13] MEDS ORDERED: Oyster Shell C500 MG PO (14:59)
[2018-10-13] MEDS ORDERED: CEFP200 PO (15:00)
[2018-10-13] MEDS ORDERED: ONDA4ODT MM (15:01)
[2018-10-13] MEDS ORDERED: IRON150C PO (15:02)
[2018-10-13] MEDS ORDERED: PANT20 PO (15:03)
[2018-10-13] MEDS ORDERED: TROSPIUM CHLORI20 MG PO (15:03)
[2018-10-13] MEDS ORDERED: THIAMINE PO (15:06)
[2018-10-13] MEDS ORDERED: VANCOMYCIN PO (15:08)
--- NOTE | 2018-10-13 16:29 | NUR ---
DISCAHRGE SUMMARY MANPREET A&O X4. ALL DISCHARGE INFORMATION REVIEWED INCLUDING FOLLOW UP APPOINTMENTS, MEDICATIONS, AND PATIENT EDUCATION PROVIDED. IV D/C, WNL. PERSONNEL WORKER ESCORTED PATIENT OUT BY WHEELCHAIR. ALL BELONGINGS IN HAND.
== END 2018-10-13 16:28 | disposition home or self-care (01) | DRG 683 ==
LOC: ER 13:47 → ERHOLD 17:44 → MEDS 17:44
PROVIDERS: Nurse Practitioner Acute Care; Physician Assistant; ADMIT Family Medicine
DX: N17.9 Acute kidney failure, unspecified (principal); L02.211 Cutaneous abscess of abdominal wall; N13.8 Other obstructive and reflux uropathy; N39.0 Urinary tract infection, site not specified; K52.9 Noninfective gastroenteritis and colitis, unspecified; J44.9 Chronic obstructive pulmonary disease, unspecified; N40.1 Benign prostatic hyperplasia with lower urinary tract symptoms; B96.1 Klebsiella pneumoniae [K. pneumoniae] as the cause of diseases classified elsewhere; E11.22 Type 2 diabetes mellitus with diabetic chronic kidney disease; D63.1 Anemia in chronic kidney disease; E87.6 Hypokalemia; E83.42 Hypomagnesemia; I48.2 Chronic atrial fibrillation; B95.2 Enterococcus as the cause of diseases classified elsewhere; R19.7 Diarrhea, unspecified; N18.3 Chronic kidney disease, stage 3 (moderate); I12.9 Hypertensive chronic kidney disease with stage 1 through stage 4 chronic kidney disease, or unspecified chronic kidney disease; K21.9 Gastro-esophageal reflux disease without esophagitis; Z74.09 Other reduced mobility; Z66 Do not resuscitate; Z86.718 Personal history of other venous thrombosis and embolism; Z87.891 Personal history of nicotine dependence
CPT/HCPCS: 36415; 51798; 74176; 80048; 80053; 80069; 81001; 82330; 82550; 82570; 83735; 84100; 84300; 85025; 85027; 86850; 86900; 86901; 87077; 87086; 87106; 87186; 93005; 93010; 94640; 94760; 96361; 96365; 96366; 96375; 97110; 97116; 97162; 97530; 99285-25; C9113; J0696; J3475; J3480; J7030

== ENCOUNTER 2018-10-28 10:50 | Day surgery (SDC) | payer MEDICARE ==
[~2018-10-28 10:50] MED LIST changes: +**INCOMPLETE MED REC; +ACETAMINOPHEN650 MG PO; +ACIDOPHILUS1 EAC2 PO; +ALBU3IS NEB; +ALBU90OI61 INH; +Banatrol1 EACH PO; +CEFP200 PO; +DULERA 200 MCG/13 GM INH; +FAMO20 PO; +FOLI1 PO; +Ferrex 150 For1 EACH PO; +IRON150C PO; +METO50ER PO; +MYRBETRIQ25 MG PO; +ONDA4ODT MM; +Oyster Shell C500 MG PO; +TAMS.4ER PO; +THIAMINE PO; +TROSPIUM CHLORI20 MG PO; +VANCOMYCIN PO
== END 2018-10-28 17:58 | disposition home or self-care (01) ==
LOC: ATC 10:50
DX: I12.9 Hypertensive chronic kidney disease with stage 1 through stage 4 chronic kidney disease, or unspecified chronic kidney disease (principal); N18.3 Chronic kidney disease, stage 3 (moderate); N17.9 Acute kidney failure, unspecified; D63.1 Anemia in chronic kidney disease; N25.81 Secondary hyperparathyroidism of renal origin; E87.70 Fluid overload, unspecified; T38.0X5A Adverse effect of glucocorticoids and synthetic analogues, initial encounter; D50.9 Iron deficiency anemia, unspecified; E55.9 Vitamin D deficiency, unspecified; M10.9 Gout, unspecified; E53.8 Deficiency of other specified B group vitamins; R80.9 Proteinuria, unspecified; N13.30 Unspecified hydronephrosis; N40.0 Benign prostatic hyperplasia without lower urinary tract symptoms; Z79.899 Other long term (current) drug therapy
CPT/HCPCS: 36415; 36430; 86850; 86900; 86901; 86923; J7050; P9016

== ENCOUNTER 2019-05-12 13:23 | Inpatient (IN) | payer MEDICARE, OTHER ==
[~2019-05-12] VITALS: Ht 177.8 cm; Wt 81.9 kg
[2019-05-12 14:43] LABS: BASOPHILS ABSOLUTE AUTO 0.02 K/mm3 (0.00-0.23); BASOPHILS PERCENT AUTO 0 % (0-2); EOSINOPHILS ABSOLUTE AUTO 0.01 K/mm3 (0.00-0.68); EOSINOPHILS PERCENT AUTO 0 % (0-6); Hematocrit 33.4 % (37.0-53.0); Hemoglobin 10.5 g/dL (13.5-17.5); IMMATURE GRAN ABSOLUTE AUTO 0.02 K/mm3 (0.00-0.10); IMMATURE GRAN PERCENT AUTO 0 % (0-1); LYMPHOCYTES ABSOLUTE AUTO 0.65 K/mm3 (0.84-5.20); LYMPHOCYTES PERCENT AUTO 10 % (21-46); MONOCYTES PERCENT AUTO 16 % (4-13); Mean Corpuscular HGB 26.7 pg (26.0-34.0); Mean Corpuscular HGB Conc 31.4 g/dL (31.5-36.5); Mean Corpuscular Volume 85 fL (80-100); NEUTROPHILS ABSOLUTE AUTO 4.56 K/mm3 (1.96-9.15); NEUTROPHILS PERCENT AUTO 73 % (41-73); Platelet Count 105 K/mm3 (150-400); RDW Coefficient Variation 18.9 % (11.7-14.2); RDW Standard Deviation 57.9 fL (35.1-46.3); Red Blood Cell Count 3.93 M/mm3 (4.30-5.90); White Blood Cell Count 6.26 K/mm3 (4.00-11.30)
[2019-05-12 15:05] LABS: Albumin, Blood 2.2 g/dL (3.4-5.0); Albumin/Globulin Ratio 0.6 (0.8-1.8); Bilirubin, Total 1.4 mg/dL (0.1-1.0); Bun/Creatinine Ratio 23.3 (12.0-20.0); Creatinine, Blood 1.8 mg/dL (0.60-1.20); Globulin, Blood 3.9 g/dL (2.2-4.0); Potassium, Blood 2.8 mmol/L (3.5-5.5); Total Protein, Blood 6.1 g/dL (6.4-8.2)
[2019-05-12 16:52] LABS: Source, Urine Clean Catch
[2019-05-12 16:55] LABS: Bilirubin, Urine Neg (Neg); Blood, Urine Neg (Neg); Glucose Qualitative, Urine Neg (Neg); Ketones, Urine Neg (Neg); Leukocyte Esterase, Urine 3+ (Neg); Nitrite, Urine Neg (Neg); Protein, Urine 1+ (Neg); Specific Gravity, Urine 1.015 (1.003-1.022); Urobilinogen, Urine 1+ (Normal)
[2019-05-12 17:00] LABS: Appearance, Urine Clear (Clear); Color, Urine Yellow (P-Yellow)
[2019-05-12 17:01] LABS: Bacteria Mod /hpf; Squamous Epithelial Cells Few /hpf (Few); White Blood Cells, Urine 25-50 /hpf (0-5)
[2019-05-12] MEDS ORDERED: Bumetanide2 MG PO (18:40)
[2019-05-12 20:51] LABS: Troponin I <0.015 ng/mL (0.000-0.040)
[2019-05-12] MEDS ORDERED: IBUP400 PO (22:37)
[2019-05-13 01:47] LABS: Source, Urine Catheter
--- NOTE | 2019-05-13 01:49 | NUR ---
2210: PT ARRIVED TO FLOOR. PT SATURATING AT 79% ON 4.5L VIA N/C. CALLED RT TO THE ROOM. COACHED PATIENT TO BREATH IN THRU NOSE OUT THRU PURSED LIPS. NO CHANGE. INCREASED O2 TO 6L RT CAME IN PUT PATIENT ON PULSE OX. RT WORKING WITH PATIENT. PATIENT O2 LEVELS WNL. ADMISSION AND ASSESSMENTS COMPLETED. PT OOB TO BSC TO VOID 100 ML DARK YELLOW URINE. PVR BLADDER SCAN SHOWS 250+ML. PLACED PARKS PER ORDER FOR STRICT I&Os. U/A SENT PER PROTOCOL. B/L LE's ELEVATED AND WRAPPED LIGHTLY IN BLUE CHUCKS FOR WEEPING. PT SIGNED WAIVER DECLINING CPAP. BED LOW AND LOCKED AND ALARMED. CALL NEGRON WITHIN REACH.
[2019-05-13 01:50] LABS: Bilirubin, Urine Neg (Neg); Blood, Urine Neg (Neg); Glucose Qualitative, Urine Neg (Neg); Ketones, Urine 1+ (Neg); Leukocyte Esterase, Urine 3+ (Neg); Nitrite, Urine Neg (Neg); Protein, Urine 2+ (Neg); Urobilinogen, Urine 1+ (Normal)
[2019-05-13 02:02] LABS: Amorphous Mod (0-Heavy); Appearance, Urine Hazy (Clear); Bacteria Few /hpf; Color, Urine Yellow (P-Yellow); Red Blood Cells, Urine Not Seen /hpf (0-2); Squamous Epithelial Cells Few /hpf (Few)
--- NOTE | 2019-05-13 03:09 | NUR ---
Both LE with open blisters on shins. Lt foot has scabs around 4th and 5th toe nails. Rt foot has blackened area on pad of great toe and great toe nail very loose and tender, nail bed red and sl weepy. Both legs wiht crusty dry skin on feet, toes and ankles. Pt states unable to soak or wash feet" for awhile". Intact skin scrubbed wiht surecleans spray, open areas gently washed as possible. Open areas covered with non adherent dressing and shins covered wiht exudry and gauze wrapping to contain any weeping. See photos.
[2019-05-13 05:20] LABS: BASOPHILS ABSOLUTE AUTO 0.03 K/mm3 (0.00-0.23); BASOPHILS PERCENT AUTO 1 % (0-2); EOSINOPHILS ABSOLUTE AUTO 0.02 K/mm3 (0.00-0.68); EOSINOPHILS PERCENT AUTO 0 % (0-6); Hematocrit 30.4 % (37.0-53.0); Hemoglobin 9.2 g/dL (13.5-17.5); IMMATURE GRAN ABSOLUTE AUTO 0.01 K/mm3 (0.00-0.10); IMMATURE GRAN PERCENT AUTO 0 % (0-1); LYMPHOCYTES ABSOLUTE AUTO 0.39 K/mm3 (0.84-5.20); LYMPHOCYTES PERCENT AUTO 7 % (21-46); MONOCYTES ABSOLUTE AUTO 0.76 K/mm3 (0.16-1.47); MONOCYTES PERCENT AUTO 13 % (4-13); Mean Corpuscular HGB 26.4 pg (26.0-34.0); Mean Corpuscular HGB Conc 30.3 g/dL (31.5-36.5); Mean Corpuscular Volume 87 fL (80-100); Mean Platelet Volume 13.6 fL (9.1-12.4); NEUTROPHILS ABSOLUTE AUTO 4.74 K/mm3 (1.96-9.15); NEUTROPHILS PERCENT AUTO 80 % (41-73); Platelet Count 86 K/mm3 (150-400); RDW Coefficient Variation 19.1 % (11.7-14.2); RDW Standard Deviation 59.8 fL (35.1-46.3); Red Blood Cell Count 3.48 M/mm3 (4.30-5.90); White Blood Cell Count 5.95 K/mm3 (4.00-11.30)
[2019-05-13 05:47] LABS: Magnesium, Blood 1.6 mg/dL (1.6-2.4)
[2019-05-13 05:51] LABS: Albumin, Blood 1.6 g/dL (3.4-5.0); Anion Gap 8 mmol/L (6-16); Blood Urea Nitrogen 41 mg/dL (8-24); Bun/Creatinine Ratio 22.8 (12.0-20.0); CO2, Blood 22 mmol/L (21-32); Calcium, Blood 7.7 mg/dL (8.5-10.1); Chloride, Blood 115 mmol/L (98-108); Glomerular Filtration Rate 38 (60-); Glucose, Blood 102 mg/dL (70-99); Phosphorus, Blood 3.8 mg/dL (2.5-4.9); Potassium, Blood 3.6 mmol/L (3.5-5.5); Sodium, Blood 145 mmol/L (136-145)
--- NOTE | 2019-05-13 06:30 | NUR ---
PATIENT RECEIVED LASIX PER EMAR BUT 2ND DOSE HELD BP WAS LOW.
--- NOTE | 2019-05-13 12:57 | NUR ---
Echocardiogram completed.
[2019-05-13 15:22] LABS: Creatinine, Urine Random 61.1 mg/dL (27.00-270.00)
--- NOTE | 2019-05-13 23:08 | NUR ---
NOTIFIED HOSPITALIST OF PT REQUEST FOR IBUPOFREN FOR CHRONIC PAIN. ORDER WAS DECLINED BY HOSPITALIST D/T PT'S ADMITTING DIAGNOSIS OF ACUTE ON CHRONIC RENAL FAILURE.
--- NOTE | 2019-05-14 02:02 | NUR ---
PT RESTING QUIETLY IN BED. PARKS CATHETER DRAINING YELLOW URINE. 2L VIA NC IN MOUTH PER PT CHOICE. FOOT CRADLE HOLDING BLANKETS OFF PT'S FEET. CALL LT IN REACH.
--- NOTE | 2019-05-14 04:32 | NUR ---
SHIFT SUMMARY: ALERT AND ORIENTED, USING CALL LT APPROPRIATE. USES 2L 02 AT BEDTIME. VSS T/O SHIFT. MEDICATED WITH 650MG OF TYLENOL FOR RIGHT LEG PAIN. PT RESTED BETTER. PARKS CATHETER DRAINING YELLOW URINE. DRESSINGS TO BLE AND FEET CHANGED. ORTHO SEEN PT WITH NEW ORDERS PLACED. PT IS NPO AT THIS TIME FOR POSSIBLE SURGICAL INTERVENTION. PT HAD A LARGE SOFT, BROWN BOWEL MOVEMENT. IS A 1-2 PA ASSIST TO THE BSC USING GAIT BELT. TAKES MEDS WHOLE WITH WATER. SALINE LOCKED. NO ACUTE CHANGES. WILL CONTINUE TO MONITOR AND PROVIDE CARE UNTIL SHIFT REPORT TO ONCOMING NURSE.
[2019-05-14 05:25] LABS: Bun/Creatinine Ratio 20.9 (12.0-20.0); Creatinine, Blood 2.11 mg/dL (0.60-1.20); Potassium, Blood 3.5 mmol/L (3.5-5.5)
[2019-05-14 06:02] LABS: Hematocrit 31.8 % (37.0-53.0); Hemoglobin 9.7 g/dL (13.5-17.5); Mean Corpuscular HGB 26.9 pg (26.0-34.0); Mean Corpuscular HGB Conc 30.5 g/dL (31.5-36.5); Mean Corpuscular Volume 88 fL (80-100); Platelet Count 79 K/mm3 (150-400); RDW Coefficient Variation 19.6 % (11.7-14.2); RDW Standard Deviation 61.4 fL (35.1-46.3); White Blood Cell Count 6.06 K/mm3 (4.00-11.30)
--- NOTE | 2019-05-14 14:12 | NUR ---
plan is toenail removal today pt has visitors will return. pt needs safe dischage plan. may need aps if not already involved.
--- NOTE | 2019-05-14 18:10 | NUR ---
PATIENT HAD RIGHT GREAT TOE NAIL REMOVED BY DOCTOR SPEARS THIS AFTERNOON. TOLERATED WELL. PATIENT CONTINUES TO REST AND GET HIS ABX PER ORDER. DRESSINGS TO FEET CHANGED THIS SHIFT. NO ACUTE CHANGES. CALL LIGHT WITHIN REACH.
--- NOTE | 2019-05-15 05:08 | NUR ---
SHIFT SUMMARY PT ADMITTED FOR ACUTE ON CHRONIC RENAL FAILURE. ENJOYS HIS ROOM VERY WARM WANTS DOOR SHUT WHEN POSSIBLE. HE IS ON 2L NC, BUT NEEDED IT BUMPED UP TO 3 DURING A TRANSFER TO BED TO COMMODE AND BACK. HE IS SOFT BITE SIZE DIET AND NECTAR THICK LIQUIDS WHICH HE TOLERATED WELL ON MY SHIFT. AT 2109 HE FLORENCE SOB AND RT CAME TO GIVE BREATHING TX WHICH PT STATED HELPED. PT TURNS SELF FREQUENTLY, BUT STAFF ASSISTS NEEDED. HE CALLS OUT APPROPRIATELY FOR HELP. HE HAS NOT COMPLAINED OF PAIN FOR ME THIS SHIFT. WILL CONTINUE TO MONITOR.
--- NOTE | 2019-05-15 16:41 | NUR ---
Spiritual Care intial note: Per admit trigger, I was tasked to speak to Mr. Robbins about ACP. He has a POLST on file and he is satisfied with this plan.
--- NOTE | 2019-05-15 18:27 | NUR ---
SHIFT SUMMARY: PT HAS BEEN A/O X 4 WITH NO C/O PAIN TODAY. HE HAS BEEN TIRED AND DISPLAYS DYSPNEA ON EXERTION. HE REMAINS ON 2 LPM VIA NASAL CANULA. IV ABO INFUSED WITH NO ISSUES WITH NEW IV LINE. PT GOT UP X 1 ASSIST WITH OT TO CHAIR TODAY. PT CAREGIVER STOPPED BY AND ASKED THAT WHEN HE RETURN HOME HE HAS HOME HEALTH FOR HIS WOUND CARE AND THIS WAS RELAYED TO THE CHARGE NURSE. PT IS RESTING IN BED AND USES CALL LIGHT FOR HELP WHEN NEEDED.
[2019-05-16 05:54] LABS: Albumin, Blood 1.6 g/dL (3.4-5.0); Anion Gap 10 mmol/L (6-16); Blood Urea Nitrogen 48 mg/dL (8-24); Bun/Creatinine Ratio 18.3 (12.0-20.0); CO2, Blood 23 mmol/L (21-32); Calcium, Blood 7.9 mg/dL (8.5-10.1); Chloride, Blood 111 mmol/L (98-108); Creatinine, Blood 2.63 mg/dL (0.60-1.20); Glomerular Filtration Rate 25 (60-); Glucose, Blood 96 mg/dL (70-99); Phosphorus, Blood 4.3 mg/dL (2.5-4.9); Potassium, Blood 3.2 mmol/L (3.5-5.5); Sodium, Blood 144 mmol/L (136-145)
[2019-05-16 06:43] LABS: BASOPHILS ABSOLUTE AUTO 0.02 K/mm3 (0.00-0.23); BASOPHILS PERCENT AUTO 0 % (0-2); EOSINOPHILS ABSOLUTE AUTO 0.04 K/mm3 (0.00-0.68); EOSINOPHILS PERCENT AUTO 1 % (0-6); Hematocrit 27.7 % (37.0-53.0); Hemoglobin 8.7 g/dL (13.5-17.5); IMMATURE GRAN ABSOLUTE AUTO 0.01 K/mm3 (0.00-0.10); IMMATURE GRAN PERCENT AUTO 0 % (0-1); LYMPHOCYTES ABSOLUTE AUTO 0.42 K/mm3 (0.84-5.20); LYMPHOCYTES PERCENT AUTO 8 % (21-46); MONOCYTES ABSOLUTE AUTO 0.66 K/mm3 (0.16-1.47); MONOCYTES PERCENT AUTO 13 % (4-13); Mean Corpuscular HGB Conc 31.4 g/dL (31.5-36.5); Mean Corpuscular Volume 86 fL (80-100); NEUTROPHILS ABSOLUTE AUTO 3.93 K/mm3 (1.96-9.15); NEUTROPHILS PERCENT AUTO 77 % (41-73); Platelet Count 64 K/mm3 (150-400); RDW Coefficient Variation 19.2 % (11.7-14.2); RDW Standard Deviation 58.1 fL (35.1-46.3); Red Blood Cell Count 3.22 M/mm3 (4.30-5.90); White Blood Cell Count 5.08 K/mm3 (4.00-11.30)
[2019-05-16 07:16] LABS: TOTAL CELLS COUNTED 2
--- NOTE | 2019-05-16 11:49 | NUR ---
DR CHAVEZ'S OFFICE NOTIFIED OF CONSULT.
[2019-05-16 14:22] LABS: International Normalized Ratio 1.41; Prothrombin Time Results 14.5 Sec (9.7-11.5)
[2019-05-16 14:38] LABS: Albumin, Blood 1.8 g/dL (3.4-5.0); Albumin/Globulin Ratio 0.5 (0.8-1.8); Bilirubin, Direct 0.4 mg/dL (0.0-0.3); Bilirubin, Indirect 0.3 mg/dL (0.1-0.7); Bilirubin, Total 0.7 mg/dL (0.1-1.0); Globulin, Blood 3.6 g/dL (2.2-4.0); Total Protein, Blood 5.4 g/dL (6.4-8.2)
--- NOTE | 2019-05-16 18:08 | NUR ---
ULTRASOUND IN PROGRESS.
--- NOTE | 2019-05-16 18:34 | NUR ---
SHIFT SUMMARY- PT A/O, PLEASANT AND COOPERATIVE. PT UP TO CHAIR WITH 1 ASSIST. PT MEDICATED X1 WITH TYLENOL FOR LEFT HIP PAIN, KPAD PLACED. LS DIMINISHED WITH TRACHEAL WHEEZE NOTED, ON RA DURING THE DAY, 2L AT HS. HR IRREG. EDEMA TO BUE, ABD, AND BLE. LUE WEEPING. ULCERS TO BLE, DRESSING CHANGED TODAY. DR CHAVEZ CONSULTED. IV BUMEX GIVEN X2. BP REMAINS IN THE LOW 100'S. PT DENIES ANY DIZZINESS. 750ML OUT WITH PARKS, PARKS KEPT IN PLACE FOR STRICT I&O'S WITH DIURESING. LOOSE STOOLS X2 THIS SHIFT. NO OTHER ACUTE CHANGES THIS SHIFT.
[2019-05-16 19:54] LABS: Albumin, Blood 1.8 g/dL (3.4-5.0); Anion Gap 10 mmol/L (6-16); Blood Urea Nitrogen 47 mg/dL (8-24); Bun/Creatinine Ratio 17.6 (12.0-20.0); CO2, Blood 26 mmol/L (21-32); CPK Creatine Kinase 46 U/L (39-308); Calcium, Blood 8.1 mg/dL (8.5-10.1); Chloride, Blood 110 mmol/L (98-108); Creatinine, Blood 2.67 mg/dL (0.60-1.20); Glomerular Filtration Rate 24 (60-); Glucose, Blood 115 mg/dL (70-99); Lactate Dehydrogenase (Ld),Bld 232 U/L (100-240); Phosphorus, Blood 3.6 mg/dL (2.5-4.9); Sodium, Blood 146 mmol/L (136-145)
[2019-05-16 19:58] LABS: Percent Saturation 16.4 % (20.0-50.0)
[2019-05-16 20:03] LABS: Creatinine, Urine Random 30.3 mg/dL (27.00-270.00); Protein, Urine Random 8.1 mg/dL (0.0-11.9)
--- NOTE | 2019-05-17 04:40 | NUR ---
SHIFT SUMMARY- PT. A&OX3, COOPERATIVE WITH CARE. RESTED ON/OFF T/O THE NIGHT. PT. WITH LOOSE STOOLS X3. 1 ASSIST W/WALKER TO BSC. BLE ARE EDEMATOUS WITH CHRONIC WOUNDS TO THE FEET/TOES AND LT ARM WEEPING. C/O PAIN TO BLE AND LT HIP WITH MOVEMENT. KPAD IN PLACE. PT. STATES TYLENOL APPEARS TO RELIEVE SOME OF THE PAIN/DISCOMFORT. PT. ON RA DURING THE DAY AND 2L @HS, CONTINOUS PULSE OX ON FOR MONITORING. PARKS IN PLACE AND DRAINING. CALL LIGHT WITHIN REACH AND SIDE RAILS UP X2. WILL CONT TO MONITOR.
[2019-05-17 09:37] LABS: BASOPHILS ABSOLUTE AUTO 0.02 K/mm3 (0.00-0.23); BASOPHILS PERCENT AUTO 0 % (0-2); EOSINOPHILS ABSOLUTE AUTO 0.04 K/mm3 (0.00-0.68); EOSINOPHILS PERCENT AUTO 1 % (0-6); Hematocrit 27.4 % (37.0-53.0); Hemoglobin 8.5 g/dL (13.5-17.5); IMMATURE GRAN ABSOLUTE AUTO 0.01 K/mm3 (0.00-0.10); IMMATURE GRAN PERCENT AUTO 0 % (0-1); LYMPHOCYTES ABSOLUTE AUTO 0.44 K/mm3 (0.84-5.20); LYMPHOCYTES PERCENT AUTO 9 % (21-46); MONOCYTES ABSOLUTE AUTO 0.72 K/mm3 (0.16-1.47); MONOCYTES PERCENT AUTO 15 % (4-13); Mean Corpuscular HGB 26.5 pg (26.0-34.0); Mean Corpuscular Volume 85 fL (80-100); NEUTROPHILS ABSOLUTE AUTO 3.62 K/mm3 (1.96-9.15); NEUTROPHILS PERCENT AUTO 75 % (41-73); RDW Coefficient Variation 19.4 % (11.7-14.2); RDW Standard Deviation 59.2 fL (35.1-46.3); Red Blood Cell Count 3.21 M/mm3 (4.30-5.90); White Blood Cell Count 4.85 K/mm3 (4.00-11.30)
[2019-05-17 09:38] LABS: Platelet Count 62 K/mm3 (150-400)
[2019-05-17 10:06] LABS: Albumin, Blood 1.6 g/dL (3.4-5.0); Anion Gap 10 mmol/L (6-16); Blood Urea Nitrogen 46 mg/dL (8-24); Bun/Creatinine Ratio 17.2 (12.0-20.0); CO2, Blood 27 mmol/L (21-32); Calcium, Blood 7.7 mg/dL (8.5-10.1); Chloride, Blood 111 mmol/L (98-108); Creatinine, Blood 2.68 mg/dL (0.60-1.20); Glomerular Filtration Rate 24 (60-); Glucose, Blood 106 mg/dL (70-99); Phosphorus, Blood 3.8 mg/dL (2.5-4.9); Sodium, Blood 148 mmol/L (136-145)
[2019-05-17 15:04] LABS: Albumin, Blood 1.8 g/dL (3.4-5.0); Anion Gap 7 mmol/L (6-16); Blood Urea Nitrogen 50 mg/dL (8-24); Bun/Creatinine Ratio 19.2 (12.0-20.0); CO2, Blood 29 mmol/L (21-32); Calcium, Blood 8.1 mg/dL (8.5-10.1); Chloride, Blood 109 mmol/L (98-108); Creatinine, Blood 2.61 mg/dL (0.60-1.20); Glomerular Filtration Rate 25 (60-); Glucose, Blood 130 mg/dL (70-99); Phosphorus, Blood 3.6 mg/dL (2.5-4.9); Potassium, Blood 3.2 mmol/L (3.5-5.5); Sodium, Blood 145 mmol/L (136-145)
[2019-05-17 16:26] LABS: Albumin, Blood 1.8 g/dL (3.4-5.0); Anion Gap 8 mmol/L (6-16); Blood Urea Nitrogen 49 mg/dL (8-24); Bun/Creatinine Ratio 19.2 (12.0-20.0); CO2, Blood 29 mmol/L (21-32); Calcium, Blood 8.1 mg/dL (8.5-10.1); Chloride, Blood 109 mmol/L (98-108); Creatinine, Blood 2.55 mg/dL (0.60-1.20); Glomerular Filtration Rate 26 (60-); Glucose, Blood 116 mg/dL (70-99); Phosphorus, Blood 3.4 mg/dL (2.5-4.9); Potassium, Blood 3.2 mmol/L (3.5-5.5); Sodium, Blood 146 mmol/L (136-145)
--- NOTE | 2019-05-17 18:02 | NUR ---
SHIFT SUMMARY FLAT AFFECT BUT MORE PLEASANT TODAY. EATING AND DRINKING WELL. LOWER EXT WOUNDS REDRESSED AND PICTURES PLACED IN CHART. DR. SPEARS SAW PT AND PICTURES TODAY. BUMEX STOPPED. MECHANICAL SOFT NO MIXED CONSISTENCY. NECTAR THICK LIQUIDS (TO PT'S DISMAY).
[2019-05-17 19:03] LABS: Bilirubin, Urine Neg (Neg); Blood, Urine 1+ (Neg); Glucose Qualitative, Urine Neg (Neg); Ketones, Urine Neg (Neg); Leukocyte Esterase, Urine 3+ (Neg); Nitrite, Urine Neg (Neg); Protein, Urine Neg (Neg); Specific Gravity, Urine 1.015 (1.003-1.022); Urobilinogen, Urine NORM (Normal)
[2019-05-17 19:11] LABS: Appearance, Urine Hazy (Clear); Color, Urine Yellow (P-Yellow)
[2019-05-17 19:17] LABS: Bacteria Mod /hpf; Squamous Epithelial Cells Rare /hpf (Few)
--- NOTE | 2019-05-18 04:39 | NUR ---
SHIFT SUMMARY: 83 Y/O MALE RESTED COMFORTABLY ALL SHIFT, DENIES PAIN OR NAUSEA, ALERT AND ORIENTED X 2, ABLE TO FOLLOW SIMPLE VERBAL COMMANDS, REQUIRES FREQUENT REORIENTATION FROM STAFF, PARKS DRAINING CLEAR YELLOW FLUID, BLE WOUNDS DRESSINGS ARE DRY AND INTACT, BED ALARM APPLIED, BED LOW POSITION WITH CALL LIGHT AT SIDE.
[2019-05-18 05:16] LABS: BASOPHILS ABSOLUTE AUTO 0.02 K/mm3 (0.00-0.23); BASOPHILS PERCENT AUTO 0 % (0-2); EOSINOPHILS ABSOLUTE AUTO 0.05 K/mm3 (0.00-0.68); EOSINOPHILS PERCENT AUTO 1 % (0-6); IMMATURE GRAN ABSOLUTE AUTO 0.02 K/mm3 (0.00-0.10); IMMATURE GRAN PERCENT AUTO 0 % (0-1); LYMPHOCYTES ABSOLUTE AUTO 0.61 K/mm3 (0.84-5.20); LYMPHOCYTES PERCENT AUTO 11 % (21-46); MONOCYTES ABSOLUTE AUTO 0.92 K/mm3 (0.16-1.47); MONOCYTES PERCENT AUTO 16 % (4-13); Mean Corpuscular HGB 26.9 pg (26.0-34.0); Mean Corpuscular Volume 87 fL (80-100); NEUTROPHILS ABSOLUTE AUTO 3.99 K/mm3 (1.96-9.15); NEUTROPHILS PERCENT AUTO 71 % (41-73); Platelet Count 70 K/mm3 (150-400); RDW Coefficient Variation 19.5 % (11.7-14.2); RDW Standard Deviation 60.4 fL (35.1-46.3); Red Blood Cell Count 3.34 M/mm3 (4.30-5.90); White Blood Cell Count 5.61 K/mm3 (4.00-11.30)
[2019-05-18 05:41] LABS: Magnesium, Blood 1.7 mg/dL (1.6-2.4)
[2019-05-18 05:42] LABS: Albumin, Blood 1.7 g/dL (3.4-5.0); Anion Gap 8 mmol/L (6-16); Blood Urea Nitrogen 46 mg/dL (8-24); Bun/Creatinine Ratio 19.1 (12.0-20.0); CO2, Blood 28 mmol/L (21-32); Calcium, Blood 7.8 mg/dL (8.5-10.1); Chloride, Blood 110 mmol/L (98-108); Creatinine, Blood 2.41 mg/dL (0.60-1.20); Glomerular Filtration Rate 27 (60-); Glucose, Blood 106 mg/dL (70-99); Phosphorus, Blood 3.5 mg/dL (2.5-4.9); Potassium, Blood 3.5 mmol/L (3.5-5.5); Sodium, Blood 146 mmol/L (136-145)
[2019-05-18 07:08] LABS: HAPTOGLOBIN 128 mg/dL (34-200)
[2019-05-18 08:08] LABS: COMPLEMENT C3, SERUM 86 mg/dL (82-167); COMPLEMENT C4, SERUM 18 mg/dL (14-44)
--- NOTE | 2019-05-18 08:29 | NUR ---
SPOKE TO DR LEWIS OF [facility], SHE IS ORDERING EKG
--- NOTE | 2019-05-18 10:05 | NUR ---
SPOKE TO DR LEWIS, INFORMED OF EKG RESULTS OF AFIB WITH RVR, AND TOLD HER THAT W/ 2.5MG IV METOPROLOL, RATE WENT DOWN TO 88 AFIB [address] LEWIS, IV METOPROLOL SHOULD BE GIVEN FOR HR ABOVE 120
[2019-05-18 15:07] LABS: ANTI-DSDNA ANTIBODIES <1 IU/mL (0-9); RNP ANTIBODIES <0.2 AI (0.0-0.9); SJOGREN'S ANTI-SS-A <0.2 AI (0.0-0.9); SJOGREN'S ANTI-SS-B <0.2 AI (0.0-0.9); SMITH ANTIBODIES <0.2 AI (0.0-0.9)
--- NOTE | 2019-05-18 19:33 | NUR ---
SHIFT SUMMARY EBONIE DENIED PAIN THIS SHIFT EXCEPT WHEN HE WAS GETTING UP TO CHAIR/BSC. HAD BM THIS SHIFT ON BSC. 2L OXYGEN STILL ON. PARKS C/D/I. BLE EDEMA, WOUNDS CLEANED AND REDRESSED THIS SHIFT. ALERT AND ORIENTED THIS SHIFT AND ABLE TO ANSWER QUESTIONS APPROPRIATELY, BUT WHEN HIS GOOD FRIEND VISITED, HE WAS EVIDENTLY CONFUSED IN HIS STORIES WITH HER AND TIMELINE OF HOW/WHEN THEY MET, ETC. SOME NURSING HOME MEMORRY ISSUES NOTED. ST CHANGED FROM THICKENED LIQUIDS TO THIN LIQUIDS. TACHYCARDIA THIS MORNING NOTED, CALLED DR LEWIS, EKG ORDERED WHICH SHOWED AFIB WITH RVR. TELE ORDERED, IV METOPROLOL GIVEN TO GOOD EFFECT, HR DOWN TO UPPER 80S BUT STILL IN AFIB. PT ASYMPTOMATIC. SBA TO BSC. CALL LIGHT IN REACH, FREQUENT CHECKS
[2019-05-19 05:44] LABS: BASOPHILS ABSOLUTE AUTO 0.04 K/mm3 (0.00-0.23); BASOPHILS PERCENT AUTO 1 % (0-2); EOSINOPHILS ABSOLUTE AUTO 0.02 K/mm3 (0.00-0.68); EOSINOPHILS PERCENT AUTO 0 % (0-6); Hemoglobin 8.9 g/dL (13.5-17.5); IMMATURE GRAN ABSOLUTE AUTO 0.01 K/mm3 (0.00-0.10); IMMATURE GRAN PERCENT AUTO 0 % (0-1); LYMPHOCYTES PERCENT AUTO 13 % (21-46); MONOCYTES ABSOLUTE AUTO 0.92 K/mm3 (0.16-1.47); MONOCYTES PERCENT AUTO 17 % (4-13); Mean Corpuscular HGB 26.3 pg (26.0-34.0); Mean Corpuscular HGB Conc 30.7 g/dL (31.5-36.5); Mean Corpuscular Volume 86 fL (80-100); NEUTROPHILS PERCENT AUTO 69 % (41-73); Platelet Count 74 K/mm3 (150-400); RDW Coefficient Variation 19.4 % (11.7-14.2); RDW Standard Deviation 59.7 fL (35.1-46.3); Red Blood Cell Count 3.38 M/mm3 (4.30-5.90); White Blood Cell Count 5.49 K/mm3 (4.00-11.30)
[2019-05-19 06:01] LABS: Albumin, Blood 1.7 g/dL (3.4-5.0); Anion Gap 5 mmol/L (6-16); Blood Urea Nitrogen 48 mg/dL (8-24); Bun/Creatinine Ratio 21.6 (12.0-20.0); CO2, Blood 30 mmol/L (21-32); Chloride, Blood 108 mmol/L (98-108); Creatinine, Blood 2.22 mg/dL (0.60-1.20); Glomerular Filtration Rate 30 (60-); Glucose, Blood 107 mg/dL (70-99); Phosphorus, Blood 3.3 mg/dL (2.5-4.9); Potassium, Blood 4.1 mmol/L (3.5-5.5); Sodium, Blood 143 mmol/L (136-145)
--- NOTE | 2019-05-19 06:06 | NUR ---
SHIFT SUMMARY: 83 Y/O MALE RESTED COMFORTABLY ALL SHIFT, PT LAST NIGHT SWALLOWED ALL MEDS VIA APPLESAUCE WITHOUT ISSUE, HOWEVER; THIS AM, PATIENT AFTER TAKING 1 CAPSULE IN APPLESAUCE HAD 30 SECOND COUGHING EPISODE WHERE HE VOICED PROBLEM WITH SWALLOWING, RESOLVED AFTER REST, SITTING HIGH FOWLERS WHEN APPLESAUCE TAKEN, DENIES PAIN OR NAUSEA, BILATERAL LOWER EXTREMITY LEG WOUND DRESSINGS ARE DRY AND INTACT, TELEMETRY REFLECTS AFIB WITH PVC AND HEART RATE 105 PER LATIA, PIER HAND, ALERT AND ORIENTED X 2, ABLE TO FOLLOW ALL SIMPLE VERBAL COMMANDS, BED ALARM APPLIED, BED LOW POSITION WITH CALL LIGHT AT SIDE.
[2019-05-19] MEDS ORDERED: FOLI1 PO (10:06)
[2019-05-19] MEDS ORDERED: ACET325 PO (10:06)
[2019-05-19] MEDS ORDERED: Amoxicillin500 MG PO (10:06)
[2019-05-19] MEDS ORDERED: ALBU2.5V5 INH (10:06)
[2019-05-19] MEDS ORDERED: ALBU3IS INH (10:07)
[2019-05-19] MEDS ORDERED: Vsl#3 Capsule1 EACH PO (10:07)
[2019-05-19] MEDS ORDERED: MAGNESIUM OXID500 MG PO (10:07)
[2019-05-19] MEDS ORDERED: METO25ER PO (10:08)
[2019-05-19] MEDS ORDERED: ONDA4ODT MM (10:08)
[2019-05-19] MEDS ORDERED: OMEPRAZOLE20 MG PO (10:08)
--- NOTE | 2019-05-19 10:08 | NUR ---
DR. VERGARA UPDATED DR. VERGARA UPDATED ON PT CONDITION THIS AM. PT HAS EXP WHEEZES THROUGHOUT. PT SATING WELL BUT STATES HE DOESNT FEEL HE IS GETTING ENOUGH AIR. PT STATED "I FEEL LIKE MY NEXT BREATHE WILL BE MY LAST." CHEST X-RAY ORDERED. PRN ATIVAN ORDERED. DR. SLOAN TO SEE PT NOW.
[2019-05-19] MEDS ORDERED: ALCIS59.15 ML TOP (10:09)
[2019-05-19] MEDS ORDERED: K-Dur 20 meq T20 MEQ PO (10:09)
[2019-05-19] MEDS ORDERED: FERSU300 PO (10:10)
[2019-05-19] MEDS ORDERED: ASCO500 PO (10:10)
[2019-05-19 14:07] LABS: HEPARIN INDUCED PLATELET AB 0.156 OD (0.000-0.400)
--- NOTE | 2019-05-19 16:05 | NUR ---
REPORT CALLED TO UV REPORT CALLED TO UV NURSE, SARA. NUMBER LEFT IN CASE OF QUESTIONS. NONE AT THIS TIME.
[2019-05-19 16:06] LABS: A/G RATIO 0.9 (0.7-1.7); ALBUMIN 2.3 g/dL (2.9-4.4); ALPHA-1-GLOBULIN 0.2 g/dL (0.0-0.4); ALPHA-2-GLOBULIN 0.5 g/dL (0.4-1.0); BETA GLOBULIN 0.7 g/dL (0.7-1.3); GAMMA GLOBULIN 1.3 g/dL (0.4-1.8); GLOBULIN, TOTAL 2.7 g/dL (2.2-3.9); IMMUNOGLOBULIN A, QN, SERUM 471 mg/dL (61-437); IMMUNOGLOBULIN G, QN, SERUM 1269 mg/dL (700-1600); IMMUNOGLOBULIN M, QN, SERUM 73 mg/dL (15-143); M-SPIKE Not Observed g/dL (Not Observed)
[2019-05-19] MEDS ORDERED: LORA.5 PO (16:15)
--- NOTE | 2019-05-19 16:25 | NUR ---
PT DISCHARGED PT DISCHARGED AT 1623. PT IN STABLE CONDITION WITH VSS. REPORT CALLED TO UV. PT TRANSPORTED VIA WHEELCHAIR BY CLARITA. IV REMOVED & INTACT. BELONGINGS SENT WITH PT.
[2019-05-24 11:08] LABS: ANA DIRECT Negative (Negative); ANTIMYELOPEROXIDASE (MPO) ABS <9.0 U/mL (0.0-9.0); ANTIPROTEINASE 3 (PR-3) ABS <3.5 U/mL (0.0-3.5); ATYPICAL PANCA <1:20 titer (Neg:<1:20); CYTOPLASMIC (C-ANCA) <1:20 titer (Neg:<1:20); PERINUCLEAR (P-ANCA) <1:20 titer (Neg:<1:20)
== END 2019-05-19 16:24 | DRG 291 ==
LOC: ER 13:23 → MEDS 21:02
PROVIDERS: Emergency Medicine; Internal Medicine; Nurse Practitioner Acute Care; Physician Assistant; ADMIT Internal Medicine
DX: I13.0 Hypertensive heart and chronic kidney disease with heart failure and stage 1 through stage 4 chronic kidney disease, or unspecified chronic kidney disease (principal); L89.893 Pressure ulcer of other site, stage 3; J96.21 Acute and chronic respiratory failure with hypoxia; I50.33 Acute on chronic diastolic (congestive) heart failure; E44.0 Moderate protein-calorie malnutrition; I48.20 Chronic atrial fibrillation, unspecified; E11.52 Type 2 diabetes mellitus with diabetic peripheral angiopathy with gangrene; L03.115 Cellulitis of right lower limb; L03.116 Cellulitis of left lower limb; N17.9 Acute kidney failure, unspecified; L97.911 Non-pressure chronic ulcer of unspecified part of right lower leg limited to breakdown of skin; L97.921 Non-pressure chronic ulcer of unspecified part of left lower leg limited to breakdown of skin; Z87.891 Personal history of nicotine dependence; I42.9 Cardiomyopathy, unspecified; E87.70 Fluid overload, unspecified; Z99.81 Dependence on supplemental oxygen; N18.3 Chronic kidney disease, stage 3 (moderate); N40.0 Benign prostatic hyperplasia without lower urinary tract symptoms; K21.9 Gastro-esophageal reflux disease without esophagitis; F41.1 Generalized anxiety disorder; Z90.49 Acquired absence of other specified parts of digestive tract; Z87.2 Personal history of diseases of the skin and subcutaneous tissue; E87.6 Hypokalemia; R13.10 Dysphagia, unspecified; E11.622 Type 2 diabetes mellitus with other skin ulcer; Z91.14 Patient's other noncompliance with medication regimen; M62.50 Muscle wasting and atrophy, not elsewhere classified, unspecified site; I34.0 Nonrheumatic mitral (valve) insufficiency; D69.6 Thrombocytopenia, unspecified
CPT/HCPCS: 36415; 71045; 71046; 73630; 76770; 80048; 80053; 80069; 80076; 81001; 82550; 82570; 82607; 82728; 82746; 82784; 82947; 83010; 83520; 83540; 83550; 83605; 83615; 83735; 83880; 84100; 84156; 84165; 84300; 84484; 85025; 85027; 85610; 85651; 86022; 86140; 86160; 86225; 86235; 86256; 86334; 87077; 87086; 87186; 92526; 92610; 93005; 93010; 93306; 93922; 93970; 94640; 94760; 94762; 96361; 96365; 96366; 96368; 97110; 97162; 97166; 97530; 97535; 99285-25; A9270; J0456; J0881; J1650; J1940; J2543; J3475; J3480; J7030; J7050; J7512